=== PATIENT | male | born 1935 | race Caucasian/White ===

== ENCOUNTER 2016-03-30 13:06 | Inpatient (IN) | payer MEDICARE, BC ==
[2016-03-30] MEDS ORDERED: SODIUM CHLORIDE 0.9% 1,000 ML IV STA (13:30)
[2016-03-30 13:42] LABS: Basophils % (A) 0 %; CH 32.4; CHCM 32.4; Eosinophils # (A) 0.1 k/uL (0-0.7); Eosinophils % (A) 2 %; HCT 28.3 % (39.0-53.0); HDW 3.28; HGB 8.6 gm/dL (13.0-17.5); Hypochromasia Slight; Luc # (Auto) 0.12; Luc % (Auto) 2; Lymphocytes # (A) 0.5 k/uL (1.0-4.8); Lymphocytes % (A) 8 %; MCH 30.6 pg (25.0-35.0); MCHC 30.5 g/dL (31.0-37.0); MCV 100.6 fL (80.0-100.0); Macrocytosis Slight; Monocytes # (A) 0.5 k/uL (0-1.0); Monocytes % (A) 8 %; Neutrophils # (A) 4.8 k/uL (1.3-7.7); Neutrophils % (A) 80 %; RBC 2.82 m/uL (4.30-5.90); RDW 15.3 % (11.5-15.5); WBC (Perox) 6.34
[2016-03-30 13:53] LABS: Potassium 4.5 mmol/L (3.5-5.1); Total Bilirubin 0.3 mg/dL (0.2-1.3); Total Protein 6.3 g/dL (6.3-8.2)
--- NOTE | 2016-03-30 14:00 | XR ---
EXAMINATION TYPE: XR chest 2V DATE OF EXAM: 03/30/2016 1:57 PM COMPARISON: 11/16/2015 HISTORY: Pain FINDINGS: The lungs are clear and there is no pneumothorax, pleural effusion, or focal pneumonia. The heart is enlarged. Cardiac device noted. No overt failure. Correlate for previous coronary artery stenting. B iapical pleural thickening noted. IMPRESSION: 1. No acute process. 2. Cardiomegaly.
[2016-03-30] MEDS ORDERED: MORPHINE SULFATE 4 MG/ML SYRINGE IV PRN (15:05)
[2016-03-30] MEDS ORDERED: NALOXONE 0.4 MG/ML 1 ML VIAL IV PRN (15:05)
[2016-03-30] MEDS ORDERED: ONDANSETRON 4 MG/2 ML VIAL IVP PRN (15:05)
--- NOTE | 2016-03-30 15:05 | ED ---
GI Bleed HPI - General Chief complaint: GI Bleed Stated complaint: RECTAL BLEED Time Seen by Provider: 03/30/16 13:14 Source: patient, EMS Mode of arrival: EMS Limitations: no limitations - History of Present Illness Initial comments: Patient complains of bright red blood per rectum. He has had several episodes of this over the last 2 days. He also has some generalized myalgias, as well as lightheadedness and dizziness. He has had no syncope or presyncope episodes. He has no fever or chills, chest pain, shortness of breath. He has no belly or back pain. He has no nausea or vomiting. He has taken no medication for this. He denies injuries. He denies travel. He denies any exacerbating or relieving factors. - Related Data Home Medications Medication Instructions Recorded Confirmed Aspirin 81 mg PO DAILY 08/26/13 03/30/16 Atorvastatin [Lipitor] 80 mg PO HS 08/26/13 03/30/16 Digoxin [Lanoxin] 125 mg PO MOWEFR 08/26/13 03/30/16 Furosemide [Lasix] 40 mg PO BID 08/26/13 03/30/16 HYDROcodone/APAP 5-325MG [[place] 1 tab PO Q8HR PRN 08/26/13 03/30/16 5-325] Insulin Glargine [Lantus] 60 units SQ HS 08/26/13 03/30/16 Verapamil HCl [Verapamil ER] 360 mg PO PC-LUNCH 08/26/13 03/30/16 glipiZIDE [Glucotrol] 10 mg PO AC-BID 08/26/13 03/30/16 Ergocalciferol [Vitamin D2 50,000 unit PO Q14D 03/10/14 03/30/16 (DRISDOL)] Pramipexole [Mirapex] 0.125 mg PO HS 03/10/14 03/30/16 Allopurinol [Allopurinol] 100 mg PO DAILY 11/10/14 03/30/16 Enalapril Maleate [Enalapril 2.5 mg PO DAILY 11/10/14 03/30/16 Maleate] Hydrochlorothiazide 25 mg PO BID 11/10/14 03/30/16 [Hydrochlorothiazide] Omeprazole [Omeprazole] 40 mg PO DAILY 11/10/14 03/30/16 rOPINIRole HCL [Requip] 3 mg PO HS 11/10/14 03/30/16 Magnesium 400 mg PO DAILY 10/05/15 03/30/16 Calcitriol [Rocaltrol] 0.25 mcg PO WEST 03/30/16 03/30/16 Metoprolol Tartrate [Lopressor] 25 mg PO DAILY 03/30/16 03/30/16 hydrALAZINE HCL [Apresoline] 50 mg PO TID 03/30/16 03/30/16 Allergies Allergy/AdvReac Type Severity Reaction Status Date / Time No Known Allergies Allergy Verified 03/30/16 14:12 Review of Systems ROS Statement: Those systems with pertinent positive or pertinent negative responses have been documented in the HPI. ROS Other: All systems not noted in ROS Statement are negative. Past Medical History Past Medical History: Cancer, Diabetes Mellitus, GERD/Reflux, Hearing Disorder / Deafness, Hyperlipidemia, Hypertension, Pneumonia, Prostate Disorder, Renal Disease Additional Past Medical History / Comment(s): BLADDER/PROSTATE CANCER/ARTHRITIS , PAST HX OF AFIB, RLS. History of Any Multi-Drug Resistant Organisms: None Reported Past Surgical History: Bladder Surgery, Cholecystectomy, Heart Catheterization With Stent, Hernia Repair, Pacemaker, Prostate Surgery Additional Past Surgical History / Comment(s): UROSTOMY D/T BLADDER CA/BILAT CATARACT REMOVAL, X3 CARDIAC STENTS/PROSTATE REMOVED Past Anesthesia/Blood Transfusion Reactions: No Reported Reaction Date of Last Stent Placement:: 1996 Type of Cardiac Device: Permanent Pacemaker Device Placement Date:: 1996 Past Psychological History: No Psychological Hx Reported Smoking Status: Former smoker Past Alcohol Use History: None Reported Past Drug Use History: None Reported - Past Family History Father Additional Family Medical History / Comment(s): AT 34 Mother Family Medical History: Myocardial Infarction ([place]) Additional Family Medical History / Comment(s): OF [place] AGE 64 General Exam Limitations: no limitations General appearance: alert, in no apparent distress Head exam: Present: atraumatic, normocephalic, normal inspection Eye exam: Present: normal appearance, PERRL, EOMI. Absent: scleral icterus, conjunctival injection, periorbital swelling ENT exam: Present: normal exam, mucous membranes moist Neck exam: Present: normal inspection. Absent: tenderness, meningismus, lymphadenopathy Respiratory exam: Present: normal lung sounds bilaterally. Absent: respiratory distress, wheezes, rales, rhonchi, stridor Cardiovascular Exam: Present: regular rate, normal rhythm, normal heart sounds. Absent: systolic murmur, diastolic murmur, rubs, gallop, clicks GI/Abdominal exam: Present: soft, normal bowel sounds. Absent: distended, tenderness, guarding, rebound, rigid Extremities exam: Present: normal inspection, full ROM, normal capillary refill. Absent: tenderness, pedal edema, joint swelling, calf tenderness Back exam: Present: normal inspection Neurological exam: Present: alert, oriented X3, CN II-XII intact Psychiatric exam: Present: normal affect, normal mood Skin exam: Present: warm, dry, intact, normal color. Absent: rash Course Vital Signs 03/30/16 13:11 Temperature 98.0 F Pulse Rate 68 Respiratory 16 Rate Blood Pressure 157/69 O2 Sat by Pulse 97 Oximetry Medical Decision Making - Medical Decision Making Patient presents with report of GI bleed. Rectal exam reveals gross blood, guaiac positive. Hemoglobin is low. Creatinine is acutely elevated. BUN is extremely elevated. Patient will be admitted to the hospital. - Lab Data Result diagrams: 03/30/16 13:15 03/30/16 13:15 Lab Results 03/30/16 03/30/16 03/30/16 Range/Units 13:15 13:15 13:15 WBC 6.0 (3.8-10.6) k/uL RBC 2.82 L (4.30-5.90) m/uL Hgb 8.6 L (13.0-17.5) gm/dL Hct 28.3 L (39.0-53.0) % MCV 100.6 H (80.0-100.0) fL MCH 30.6 (25.0-35.0) pg MCHC 30.5 L (31.0-37.0) g/dL RDW 15.3 (11.5-15.5) % Plt Count 165 (150-450) k/uL Neutrophils % 80 % Lymphocytes % 8 % Monocytes % 8 % Eosinophils % 2 % Basophils % 0 % Neutrophils # 4.8 (1.3-7.7) k/uL Lymphocytes # 0.5 L (1.0-4.8) k/uL Monocytes # 0.5 (0-1.0) k/uL Eosinophils # 0.1 (0-0.7) k/uL Basophils # 0.0 (0-0.2) k/uL Hypochromasia Slight Macrocytosis Slight APTT 28.1 (22.0-30.0) sec Sodium 141 (137-145) mmol/L Potassium 4.5 (3.5-5.1) mmol/L Chloride 107 (98-107) mmol/L Carbon Dioxide 18 L (22-30) mmol/L Anion Gap 16 mmol/L BUN 85 H* (9-20) mg/dL Creatinine 2.84 H (0.66-1.25) mg/dL Est GFR (MDRD) Af Amer 26 (>60 ml/min/1.73 sqM) Est GFR (MDRD) Non-Af 22 (>60 ml/min/1.73 sqM) Glucose 187 H (74-99) mg/dL Calcium 9.0 (8.4-10.2) mg/dL Magnesium (1.6-2.3) mg/dL Total Bilirubin 0.3 (0.2-1.3) mg/dL AST 23 (17-59) U/L ALT 52 (21-72) U/L Alkaline Phosphatase 103 (38-126) U/L Troponin I (0.000-0.034) ng/mL Total Protein 6.3 (6.3-8.2) g/dL Albumin 3.7 (3.5-5.0) g/dL Lipase 428 H (23-300) U/L Stool Occult Blood (Negative) 03/30/16 03/30/16 03/30/16 Range/Units 13:15 13:15 13:38 WBC (3.8-10.6) k/uL RBC (4.30-5.90) m/uL Hgb (13.0-17.5) gm/dL Hct (39.0-53.0) % MCV (80.0-100.0) fL MCH (25.0-35.0) pg MCHC (31.0-37.0) g/dL RDW (11.5-15.5) % Plt Count (150-450) k/uL Neutrophils % % Lymphocytes % % Monocytes % % Eosinophils % % Basophils % % Neutrophils # (1.3-7.7) k/uL Lymphocytes # (1.0-4.8) k/uL Monocytes # (0-1.0) k/uL Eosinophils # (0-0.7) k/uL Basophils # (0-0.2) k/uL Hypochromasia Macrocytosis APTT (22.0-30.0) sec Sodium (137-145) mmol/L Potassium (3.5-5.1) mmol/L Chloride (98-107) mmol/L Carbon Dioxide (22-30) mmol/L Anion Gap mmol/L BUN (9-20) mg/dL Creatinine (0.66-1.25) mg/dL Est GFR (MDRD) Af Amer (>60 ml/min/1.73 sqM) Est GFR (MDRD) Non-Af (>60 ml/min/1.73 sqM) Glucose (74-99) mg/dL Calcium (8.4-10.2) mg/dL Magnesium 1.5 L (1.6-2.3) mg/dL Total Bilirubin (0.2-1.3) mg/dL AST (17-59) U/L ALT (21-72) U/L Alkaline Phosphatase (38-126) U/L Troponin I <0.012 (0.000-0.034) ng/mL Total Protein (6.3-8.2) g/dL Albumin (3.5-5.0) g/dL Lipase (23-300) U/L Stool Occult Blood Positive (Negative) 03/30/16 15:04 Twelve-lead EKG is obtained, interpreted by me as showing ventricular rate 60 bpm, no P waves are present, there are pacer spikes present, the QRS complex are wide, no ST elevation or depression, interpreted by me as ventricular paced rhythm. Disposition Clinical Impression: Gastrointestinal hemorrhage Disposition: ADMITTED IP TO THIS HOSP Condition: Fair Time of Disposition: 15:04
[2016-03-30 15:15] LABS: Glucose,Whole Blood 160 mg/dL (75-99)
[2016-03-30 16:50] LABS: Glucose,Whole Blood 173 mg/dL (75-99)
[2016-03-30] MEDS: FAMOTIDINE 20 MG TAB PO SCH (17:55)
[2016-03-30] MEDS: glipiZIDE 10 MG TAB PO SCH (17:55)
[2016-03-30] MEDS: hydrALAZINE HCL 50 MG TAB PO SCH ×2 (17:55→21:57)
[2016-03-30 18:15] LABS: CH 31.7; CHCM 31.8; HCT 26.3 % (39.0-53.0); HDW 3.29; HGB 8.4 gm/dL (13.0-17.5); Hypochromasia Slight; MCH 32.3 pg (25.0-35.0); MCHC 32.1 g/dL (31.0-37.0); MCV 100.6 fL (80.0-100.0); Macrocytosis Slight; Mean Platelet Volume 8.5; RBC 2.61 m/uL (4.30-5.90); RDW 15.1 % (11.5-15.5); WBC 5.5 k/uL (3.8-10.6)
[2016-03-30 20:43] LABS: Glucose,Whole Blood 134 mg/dL (75-99)
[2016-03-30] MEDS ORDERED: INSULIN GLARGINE 100 UNIT/ML 10 ML VIAL SQ SCH (21:00)
[2016-03-30] MEDS ORDERED: HYDROCHLOROTHIAZIDE 25 MG TAB PO SCH (21:00)
[2016-03-30] MEDS: SODIUM CHLORIDE 0.9% 1,000 ML IV SCH (21:56)
[2016-03-30] MEDS: ATORVASTATIN 80 MG TAB PO SCH (21:56)
[2016-03-30] MEDS: PRAMIPEXOLE 0.125 MG TAB PO SCH (21:57)
[2016-03-31 00:12] LABS: CH 32.4; CHCM 32.2; HCT 26.4 % (39.0-53.0); HDW 3.31; HGB 8.2 gm/dL (13.0-17.5); Hypochromasia Slight; MCH 31.4 pg (25.0-35.0); MCV 101.3 fL (80.0-100.0); Macrocytosis Slight; RBC 2.61 m/uL (4.30-5.90); RDW 15.3 % (11.5-15.5); WBC 5.6 k/uL (3.8-10.6)
[2016-03-31] MEDS: SODIUM CHLORIDE 0.9% 1,000 ML IV SCH ×2 (06:29→16:54)
[2016-03-31 06:31] LABS: CH 32.5; CHCM 32.2; HCT 25.4 % (39.0-53.0); HDW 3.27; Hypochromasia Slight; MCH 31.9 pg (25.0-35.0); MCHC 31.4 g/dL (31.0-37.0); MCV 101.5 fL (80.0-100.0); Macrocytosis Slight; Mean Platelet Volume 7.5; RBC 2.51 m/uL (4.30-5.90); RDW 15.3 % (11.5-15.5); WBC 5.4 k/uL (3.8-10.6)
[2016-03-31 06:40] LABS: Glucose,Whole Blood 64 mg/dL (75-99)
[2016-03-31 06:53] LABS: Glucose,Whole Blood 114 mg/dL (75-99)
[2016-03-31] MEDS: glipiZIDE 10 MG TAB PO SCH (07:09)
[2016-03-31] MEDS: FAMOTIDINE 20 MG TAB PO SCH (09:28)
[2016-03-31] MEDS: MAGNESIUM OXIDE 400 MG TAB PO SCH (09:29)
[2016-03-31] MEDS: DIGOXIN 125 MCG TAB PO SCH (09:29)
[2016-03-31] MEDS: hydrALAZINE HCL 50 MG TAB PO SCH ×3 (09:29→23:07)
[2016-03-31] MEDS: ALLOPURINOL 100 MG TAB PO SCH (09:29)
[2016-03-31] MEDS: METOPROLOL TARTRATE 25 MG TAB PO SCH (09:30)
--- NOTE | 2016-03-31 09:44 | HP ---
DATE OF ADMISSION: 03/30/2016 CHIEF COMPLAINT: Rectal bleeding. HISTORY OF PRESENT ILLNESS: Mr. Hidalgo is an 80-year-old male with known history of hypertension, hyperlipidemia, diabetes mellitus, coronary artery disease with stent placement and history of bladder cancer and prostate cancer, status post resection and atrial fibrillation, with history of pacemaker placement, came to the hospital with complaints of bright red blood per rectum. The patient had several episodes of this for the last 2 days. Patient also had generalized myalgias and lightheadedness and dizziness, which made him come to the hospital. Otherwise, the patient denied any fever or chills. No chest pain or short of breath. The patient denied any history of colonoscopy in the past. No history of hemorrhoids and otherwise denied nausea or vomiting. No recent travel or sick contacts. No recent illnesses. REVIEW OF SYSTEMS: CONSTITUTIONAL: No fever. No chills. RESPIRATORY: No cough or sputum production. The patient denied any NSAID use. ABDOMEN: No nausea or vomiting, abdominal pain. No constipation. No diarrhea. GENITOURINARY: Negative. ENDOCRINE: Negative. PSYCHIATRIC: Negative. SKIN: Negative. MUSCULOSKELETAL: Negative. All other fourteen-point review of systems negative except as above. Past medical history includes: Prostate cancer, bladder cancer, status post resection, diabetes mellitus, hypertension, hyperlipidemia, GERD, hearing disorder, coronary artery disease, stent placement, history of atrial fibrillation and history of pacemaker placement. PAST SURGICAL HISTORY: Bladder surgery, cholecystectomy, heart catheterization and stent placement, hernia repair, prostate surgery, urostomy due to bladder cancer, bilateral cataract removal. Three cardiac stents and prostate resection. SOCIAL HISTORY: The patient is a former smoker. Denied any alcohol use. Denied any drugs or IVDU. FAMILY HISTORY: Father age 54. Mother had MD age 64. PHYSICAL EXAMINATION: An 80-year-old male lying in the bed comfortably. Awake, alert, oriented, x3 appears to be in no apparent distress. VITALS: Blood pressure is 157/70, pulse 60, respiratory rate 16. Temperature is afebrile. Pulse ox 99% on room air. HEENT: Atraumatic, normocephalic. Neck is supple. No JVD. CVS: S1, S2 heard. No murmurs, no gallop. ABDOMEN: Soft, nontender. Bowel sounds are present. [employer]: Awake, alert, oriented, x3. No focal neurologic deficits. Cranial nerves grossly intact. EXTREMITIES: No edema. Pulses palpable bilaterally. No clubbing or cyanosis. PSYCHIATRIC: Cooperative, nonsuicidal. LABORATORY DATA: WBC 6.0, hemoglobin 8.6, platelets 165, MCV 100.6. Sodium 141, potassium 4.5, chloride 107, bicarb 18, BUN 85, creatinine 2.84. GFR is 22. Lipase 428. Magnesium 1.5, ( ) positive. EKG showed a paced rhythm. CHEST X-RAY: No acute process. Cardiomegaly. IMPRESSION: 1. Symptomatic anemia. 2. Acute blood loss anemia, secondary to lower gastrointestinal bleed, hemoglobin 8.6 was 10.3 in 2013. 3. Acute on chronic kidney disease stage IV with elevated BUN. 4. ( ) could be secondary to gastrointestinal bleed. 5. Hypomagnesemia. 6. History of bladder cancer, status post resection and ( ) and bag placement. 7. History of prostate cancer, status post resection. 8. [id number] diabetes mellitus, type II. 9. History of coronary artery disease, status post stent placement. 10. Macrocytosis. 11. Hypertension. 12. Hyperlipidemia. 13. Hearing disorder/deafness. DISCUSSION AND PLAN: An 80 -year-old male with multiple medical problems, comorbidities, admitted to the hospital with symptomatic anemia and acute blood loss anemia secondary to lower gastrointestinal bleed and rectal bleed. Will continue with hemoglobin and hematocrit every 6 hours and continue to monitor symptomatically. Will start patient on IV fluids and continue with the home medications. ( ) replace potassium and gastroenterology has been consulted for further elevation and possible colonoscopy. Prognosis guarded. Further recommendations based on the clinical course.
[2016-03-31 11:45] LABS: Glucose,Whole Blood 132 mg/dL (75-99)
[2016-03-31 12:18] LABS: CH 31.8; CHCM 31.8; HCT 25.1 % (39.0-53.0); HDW 3.22; HGB 8.1 gm/dL (13.0-17.5); Hypochromasia Slight; MCH 32.6 pg (25.0-35.0); MCHC 32.4 g/dL (31.0-37.0); MCV 100.7 fL (80.0-100.0); Macrocytosis Slight; Mean Platelet Volume 8.1; RDW 15.1 % (11.5-15.5); WBC 5.5 k/uL (3.8-10.6)
[2016-03-31] MEDS: LISINOPRIL 5 MG TAB PO SCH (12:38)
[2016-03-31 12:59] LABS: Glucose,Whole Blood 111 mg/dL (75-99)
--- NOTE | 2016-03-31 14:30 | CONS ---
DATE OF CONSULTATION: 03/31/2016 REASON FOR CONSULTATION: Acute lower GI bleed. HISTORY OF PRESENT ILLNESS: The patient is an 80-year-old pleasant, white male who came into the emergency room last night complaining of rectal bleeding. He had 2 episodes of bright red blood per rectum and the third episode he thought there was large amount of blood on the tissue paper. He became concerned and came to the emergency room and subsequently admitted to the hospital. He was on the selective floor and apparently he had 2 bowel movements back to back with ( ) amount of blood and hence he was transferred to the intensive care unit this afternoon. While I was examining the patient, he just had a bowel movement which was bright red blood mostly on the toilet tissue paper with some dripping noted. There was some brown stool also noted in the commode. The patient never had these symptoms in the past. He denies any abdominal pain. Reports no nausea or vomiting. His last colonoscopy was done in [address] Rowan and was noted to have diverticulosis as well as small internal hemorrhoids The patient reports not taking any NSAIDs recently and no history of anticoagulation. Past medical history is significant for prior history of prostate cancer, history of bladder cancer for which he underwent resection, diabetes mellitus, hypertension, GERD, hyperlipidemia, A. fib. PAST SURGICAL HISTORY: Pacemaker implantation, bladder surgery, cholecystectomy, cardiac cath, prostate surgery, hernia repair, bilateral cataract removal. Medications at home include Vitamin D2, Lanoxin, Rocaltrol, magnesium, hydrochlorothiazide, [place], Mirapex, Lopressor, Lasix, enalapril, Glucotrol, omeprazole, Apresoline, Requip, verapamil, Lantus, and allopurinol. ALLERGIES: None. SOCIAL HISTORY: No smoking. No alcohol use. FAMILY HISTORY: Unremarkable. REVIEW OF SYSTEMS: CARDIOPULMONARY: No chest pain or shortness of breath. GENITOURINARY: No dysuria or hematuria. MUSCULOSKELETAL: Unremarkable. SKIN: Unremarkable. ENDOCRINE: Unremarkable. PSYCHIATRIC: Unremarkable. NEUROLOGY: Unremarkable. ENT/VISION: Unremarkable. CONSTITUTIONAL: No recent weight loss. No fever, chills or night sweats. On physical examination, blood pressure 135/64, pulse rate 67, temperature 97.6. HEENT examination unremarkable. Conjunctivae pink. Sclerae anicteric. Oral cavity, no lesions. NECK: No JVD or lymph node enlargement. CHEST: Clear to auscultation. HEART: Regular rate and rhythm. ABDOMEN: Soft. It was nontender, nondistended. Liver and spleen are not palpable. Bowel sounds are positive. No organomegaly. EXTREMITIES: No pedal edema. SKIN: No rashes. NEURO: Alert and oriented x3. No focal deficits. Labs done at the time of admission to hospital: Hemoglobin was 8.4 and today it is 8.1. BUN is 85, creatinine 2.84. WBC 5.5 and platelets are normal at 149. PTT is within normal limits. IMPRESSION: Acute lower gastrointestinal bleed for the last 2 days' duration. The patient is having multiple episodes of bright red blood per rectum with small clots in it. Last colonoscopy in April [address] Rowan showed diverticulosis and small internal hemorrhoids. Most likely we are dealing with bleeding from internal hemorrhoids or a diverticular bleed at the present time. He is hemodynamically stable. He did drop hemoglobin from 8.4 to 8.1 g/dL. RECOMMENDATIONS: 1. Clear liquid diet. 2. CBC every 6 hours and transfuse as needed. 3. At this time, will hold off on any endoscopic intervention since he just had a colonoscopy a year and half ago. However, if he continues to have active ongoing bleeding, I will consider proceeding with a tagged RBC scan. But for now, will watch him in the ICU very closely. Thank you for this consultation. Will follow the patient closely ( ).
--- NOTE | 2016-03-31 14:47 | P.CNPUL ---
History of Present Illness Consult date: 03/31/16 Requesting physician: Tri Montanez Reason for consult: other (Acute rectal bleeding and lower GI blood loss) Chief complaint: Rectal bleeding History of present illness: This is an 80-year-old white male with history of multiple medical problems including hypertension, diabetes, coronary artery disease and previous stent placement, history of prostate and bladder cancer, history of chronic atrial fibrillation, history of pacemaker placement, patient came in with acute onset of bright red blood per rectum. Patient had several episodes over the last 2 days, and he was complaining of lightheadedness and dizziness and weakness. Patient was brought into the ER, and his initial hemoglobin was 8.4, his BUN was 84 creatinine was 2.84. His Hemoccult stool was positive, hence the patient was initially admitted to selective, and he was later transferred to the ICU because of ongoing lower GI blood losses. So far the patient has not received any blood transfusion, but he is scheduled to receive 2 units of packed RBCs at the time of my dictation. Upon my evaluation, the patient has no nausea no vomiting, no abdominal pain, no hematemesis, his only complaint was painless bright red blood per rectum over the last 2 days. Patient told me that he had a colonoscopy about 2 years ago, I was able to review the results of the colonoscopy which was done on 05/01/2014, and it showed diverticulosis, and he had a rectal polyp at the time as well as external hemorrhoids. His colonoscopy was done by Dr. Rowan Review of Systems 12 point review of systems were obtained, please refer to pertinent positives and negatives in HPI Past Medical History Past Medical History: Atrial Fibrillation, Cancer, Diabetes Mellitus, GERD/ Reflux, Hearing Disorder / Deafness, Hyperlipidemia, Hypertension, Osteoarthritis ([place]), Pneumonia, Prostate Disorder, Renal Disease Additional Past Medical History / Comment(s): BLADDER/PROSTATE CANCER with surgeries, IDDM type II, rectal polyp, diverticular dx, [place]IA[place] bilaterally, CKD stage IV, RLS, gout bilateral feet, neuropathy bilateral legs/feet and hands, R knee "gives out" at times. History of Any Multi-Drug Resistant Organisms: None Reported Past Surgical History: Bladder Surgery, Cholecystectomy, Heart Catheterization With Stent, Hernia Repair, Pacemaker, Prostate Surgery Additional Past Surgical History / Comment(s): UROSTOMY D/T BLADDER, prostatectomy due to prostate CA, BILAT CATARACT REMOVAL, X4 CARDIAC STENTS, colonoscopy with bx, bilateral inguinal hernia repairs with left side done twice then abdominal wound debridement and incisional hernia repair, Past Anesthesia/Blood Transfusion Reactions: No Reported Reaction Date of Last Stent Placement:: 1996 Type of Cardiac Device: Permanent Pacemaker Device Placement Date:: 1996 Past Psychological History: No Psychological Hx Reported Additional Psychological History / Comment(s): Pt resides with his spouse. He uses a cane or a scooter to get around. He drives some. His spouse can drive as well. Smoking Status: Former smoker Past Alcohol Use History: None Reported Additional Past Alcohol Use History / Comment(s): Pt started smoking in 1951 and quit in 2006 Past Drug Use History: None Reported - Past Family History Father Family Medical History: Renal Disease Additional Family Medical History / Comment(s): AT 34 of "uremic poisoning ". Mother History Unknown: Yes Family Medical History: Myocardial Infarction ([place]) Additional Family Medical History / Comment(s): OF [place] AGE 64 Medications and Allergies Home Medications Medication Instructions Recorded Confirmed Type Aspirin 81 mg PO DAILY 08/26/13 03/30/16 History Atorvastatin [Lipitor] 80 mg PO HS 08/26/13 03/30/16 History Digoxin [Lanoxin] 125 mg PO MOWEFR 08/26/13 03/30/16 History Furosemide [Lasix] 40 mg PO BID 08/26/13 03/30/16 History HYDROcodone/APAP 5-325MG [[place] 1 tab PO Q8HR PRN 08/26/13 03/30/16 History 5-325] Insulin Glargine [Lantus] 60 units SQ HS 08/26/13 03/30/16 History Verapamil HCl [Verapamil ER] 360 mg PO PC-LUNCH 08/26/13 03/30/16 History glipiZIDE [Glucotrol] 10 mg PO AC-BID 08/26/13 03/30/16 History Ergocalciferol [Vitamin D2 50,000 unit PO Q14D 03/10/14 03/30/16 History (DRISDOL)] Pramipexole [Mirapex] 0.125 mg PO HS 03/10/14 03/30/16 History Allopurinol [Allopurinol] 100 mg PO DAILY 11/10/14 03/30/16 History Enalapril Maleate [Enalapril 2.5 mg PO DAILY 11/10/14 03/30/16 History Maleate] Hydrochlorothiazide 25 mg PO BID 11/10/14 03/30/16 History [Hydrochlorothiazide] Omeprazole [Omeprazole] 40 mg PO DAILY 11/10/14 03/30/16 History rOPINIRole HCL [Requip] 3 mg PO HS 11/10/14 03/30/16 History Magnesium 400 mg PO DAILY 10/05/15 03/30/16 History Calcitriol [Rocaltrol] 0.25 mcg PO WEST 03/30/16 03/30/16 History Metoprolol Tartrate [Lopressor] 25 mg PO DAILY 03/30/16 03/30/16 History hydrALAZINE HCL [Apresoline] 50 mg PO TID 03/30/16 03/30/16 History Allergies Allergy/AdvReac Type Severity Reaction Status Date / Time No Known Allergies Allergy Verified 03/30/16 14:12 Physical Exam Vitals: Vital Signs Temp Pulse Pulse Resp BP BP Pulse Ox 03/31/16 14:10 98.3 F 60 18 150/51 97 03/31/16 14:03 98.3 F 60 18 150/51 97 03/31/16 12:00 97.7 F 60 20 138/58 97 03/31/16 09:20 97 F L 60 20 96 03/31/16 04:00 98.0 F 77 18 144/65 96 03/31/16 00:00 97.6 F 67 18 135/64 97 03/30/16 20:00 97.3 F L 60 18 156/69 97 03/30/16 18:50 60 16 159/70 98 03/30/16 16:30 97.6 F 60 16 157/70 99 03/30/16 16:11 98 F 60 18 155/69 98 03/30/16 15:14 98.3 F 60 18 153/70 98 Intake and Output 03/30/16 03/31/16 03/31/16 22:59 06:59 14:59 Intake Total 220 180 Output Total 300 550 375 Balance -80 -550 -195 Intake: Oral 220 180 Blood Product 0 Rc As-1 Unit 0 [id number] Output: Urine 300 550 375 Other: Voiding Method Toilet # Voids 1 # Bowel Movements 2 Weight 75 kg Physical Exam: Revealed an 80-year-old white male in no distress HEENT:[Neck is supple.] [No neck masses.] [No thyromegaly.] [No JVD.] Chest: [Clear throughout, no crackles, no rhonchi, no wheezes.] Cardiac Exam: [Normal S1 and S2, no S3 gallop, no murmur.] Abdomen: [Soft, nontender, no megaly, no rebound, no guarding, normal bowel sounds.] Extremities: [No clubbing, no edema, no cyanosis.] Neurological Exam: [No focal neurologic deficit.] Results - Laboratory Findings CBC and BMP: 03/31/16 11:58 03/30/16 13:15 Abnormal lab findings: Abnormal Labs 03/30/16 03/30/16 03/30/16 15:13 16:46 18:04 RBC 2.61 L Hgb 8.4 L Hct 26.3 L MCV 100.6 H Plt Count 149 L POC Glucose (mg/dL) 160 H 173 H 03/30/16 03/31/16 03/31/16 20:42 00:00 05:57 RBC 2.61 L 2.51 L Hgb 8.2 L 8.0 L Hct 26.4 L 25.4 L MCV 101.3 H 101.5 H Plt Count POC Glucose (mg/dL) 134 H 03/31/16 03/31/16 03/31/16 06:15 06:40 11:37 RBC Hgb Hct MCV Plt Count POC Glucose (mg/dL) 64 L 114 H 132 H 03/31/16 03/31/16 11:58 12:56 RBC 2.50 L Hgb 8.1 L Hct 25.1 L MCV 100.7 H Plt Count POC Glucose (mg/dL) 111 H - Diagnostic Findings Chest x-ray: image reviewed (No evidence of active disease) Assessment and Plan Plan: Impression: Acute GI bleeding, most likely secondary to diverticulosis and less proven otherwise. Again his last colonoscopy was done in the last 2 years, and there was evidence of diverticulosis, and hyperplastic polyp. Hence my recommendation will be to continue monitoring his GI bleeding, and transfuse as needed keeping hemoglobin above 7. Patient will need to be seen by gastroenterology or preferably surgery/Dr. Rowan since he was the one who performed his colonoscopy last. Multiple medical problems including history of diabetes type 2, hypertension, hyperlipidemia, prostate and bladder cancer, history of permanent pacemaker placement and history of chronic atrial fibrillation, however is not on anticoagulation therapy. We'll continue to follow while in the ICU. Time with Patient: Greater than 30
[2016-03-31] MEDS: traMADol 50 MG TAB PO PRN ×2 (14:56→21:35)
[2016-03-31] MEDS: VERAPAMIL SR 180 MG TABLET.ER PO SCH (14:58)
[2016-03-31] MEDS: PANTOPRAZOLE 40 MG/10 ML VIAL IVP SCH ×2 (14:58→21:35)
[2016-03-31 17:20] LABS: Glucose,Whole Blood 156 mg/dL (75-99)
[2016-03-31 18:52] LABS: CH 31.4; CHCM 31.4; HCT 31.3 % (39.0-53.0); HDW 3.38; HGB 9.9 gm/dL (13.0-17.5); Hypochromasia Moderate; MCHC 31.7 g/dL (31.0-37.0); MCV 100.9 fL (80.0-100.0); Macrocytosis Slight; Mean Platelet Volume 7.2; WBC 7.5 k/uL (3.8-10.6)
[2016-03-31 20:21] LABS: Calcium 8.4 mg/dL (8.4-10.2); Magnesium 1.5 mg/dL (1.6-2.3); Phosphorous 3.6 mg/dL (2.5-4.5); Potassium 4.5 mmol/L (3.5-5.1)
[2016-03-31 20:51] LABS: Glucose,Whole Blood 151 mg/dL (75-99)
[2016-03-31] MEDS ORDERED: Magnesium Replacement Protocol 1 EACH MISC MISCELLANE PRN (21:23)
[2016-03-31] MEDS ORDERED: MAGNESIUM SULFATE-D5W PMX 1 GM in DEXTROSE/WATER 1 100ML.BAG IVPB ONE (21:25)
[2016-03-31] MEDS: ATORVASTATIN 80 MG TAB PO SCH (21:35)
[2016-03-31] MEDS: INSULIN GLARGINE 100 UNIT/ML 10 ML VIAL SQ SCH (21:35)
[2016-03-31] MEDS: PRAMIPEXOLE 0.125 MG TAB PO SCH (21:36)
[2016-04-01] MEDS: SODIUM CHLORIDE 0.9% 1,000 ML IV SCH ×3 (01:51→20:14)
[2016-04-01 01:56] LABS: CH 31.6; CHCM 32.3; HCT 28.6 % (39.0-53.0); HDW 3.48; Hypochromasia Slight; MCH 31.1 pg (25.0-35.0); MCHC 31.5 g/dL (31.0-37.0); MCV 98.5 fL (80.0-100.0); Macrocytosis Slight; Mean Platelet Volume 7.4; Poikilocytosis Slight; WBC 5.8 k/uL (3.8-10.6)
[2016-04-01 06:09] LABS: CH 31.6; CHCM 32.1; HCT 28.3 % (39.0-53.0); HDW 3.49; Hypochromasia Slight; MCH 31.7 pg (25.0-35.0); MCV 99.2 fL (80.0-100.0); Macrocytosis Slight; Mean Platelet Volume 7.1; Poikilocytosis Slight; RBC 2.85 m/uL (4.30-5.90); RDW 15.9 % (11.5-15.5); WBC 5.9 k/uL (3.8-10.6)
[2016-04-01 06:25] LABS: Calcium 8.6 mg/dL (8.4-10.2); Phosphorous 4.1 mg/dL (2.5-4.5)
[2016-04-01 07:28] LABS: Glucose,Whole Blood 57 mg/dL (75-99)
[2016-04-01 07:49] LABS: Glucose,Whole Blood 85 mg/dL (75-99)
[2016-04-01] MEDS: PANTOPRAZOLE 40 MG/10 ML VIAL IVP SCH ×2 (10:22→20:17)
[2016-04-01] MEDS: MAGNESIUM OXIDE 400 MG TAB PO SCH (10:22)
[2016-04-01] MEDS: hydrALAZINE HCL 50 MG TAB PO SCH ×3 (10:22→20:18)
[2016-04-01] MEDS: ALLOPURINOL 100 MG TAB PO SCH (10:23)
[2016-04-01] MEDS: METOPROLOL TARTRATE 25 MG TAB PO SCH (10:23)
[2016-04-01] MEDS: LISINOPRIL 5 MG TAB PO SCH (12:08)
[2016-04-01] MEDS: VERAPAMIL SR 180 MG TABLET.ER PO SCH (12:10)
[2016-04-01 12:32] LABS: Anisocytosis Slight; CH 31.5; CHCM 31.8; HCT 29.2 % (39.0-53.0); HDW 3.48; HGB 9.4 gm/dL (13.0-17.5); Hypochromasia Slight; MCH 32.1 pg (25.0-35.0); MCHC 32.2 g/dL (31.0-37.0); MCV 99.8 fL (80.0-100.0); Macrocytosis Slight; Mean Platelet Volume 7.9; Poikilocytosis Slight; RBC 2.92 m/uL (4.30-5.90); WBC 6.4 k/uL (3.8-10.6)
[2016-04-01 12:47] LABS: Glucose,Whole Blood 82 mg/dL (75-99)
--- NOTE | 2016-04-01 12:58 | P.PN ---
Subjective Principal diagnosis: Acute GI bleeding This is an 80-year-old white male with history of multiple medical problems including hypertension, diabetes, coronary artery disease and previous stent placement, history of prostate and bladder cancer, history of chronic atrial fibrillation, history of pacemaker placement, patient came in with acute onset of bright red blood per rectum. Patient had several episodes over the last 2 days, and he was complaining of lightheadedness and dizziness and weakness. Patient was brought into the ER, and his initial hemoglobin was 8.4, his BUN was 84 creatinine was 2.84. His Hemoccult stool was positive, hence the patient was initially admitted to selective, and he was later transferred to the ICU because of ongoing lower GI blood losses. So far the patient has not received any blood transfusion, but he is scheduled to receive 2 units of packed RBCs at the time of my dictation. Upon my evaluation, the patient has no nausea no vomiting, no abdominal pain, no hematemesis, his only complaint was painless bright red blood per rectum over the last 2 days. Patient told me that he had a colonoscopy about 2 years ago, I was able to review the results of the colonoscopy which was done on 05/01/2014, and it showed diverticulosis, and he had a rectal polyp at the time as well as external hemorrhoids. His colonoscopy was done by Dr. Rowan Patient was reevaluated today on 04/01/2016, he is doing well except he continues to have intermittent episodes of bright red blood per rectum. Patient received 1 unit of packed RBCs since admission, and his hemoglobin now is 9.4. However considering the ongoing bleeding, patient will likely remain in the ICU for now. And he is to be seen by GI on consultation. Patient remains hemodynamically stable. Denies any shortness of breath no cough no wheezing no nausea no vomiting no abdominal pain. Objective - Vital Signs Vital signs: Vital Signs Temp 96.5 F L 04/01/16 08:00 Pulse 59 L 04/01/16 12:00 Resp 18 04/01/16 12:00 BP 131/56 04/01/16 12:00 Pulse Ox 96 04/01/16 12:00 Intake & Output 03/31/16 04/01/16 04/01/16 18:59 06:59 18:59 Intake Total 650 1490 920 Output Total 725 750 800 Balance -75 740 120 Weight 73.5 kg Intake: IV 160 240 520 Sodium Chloride 0.9% 1, 160 240 520 000 ml @ 100 mls/hr IV . Q10H [facility] Rx#:[id number] Intake, IV Titration 100 Amount Magnesium Sulfate-D5w Pmx 100 1 gm In Dextrose/Water 1 100ml.bag @ 100 mls/hr IVPB ONCE ONE Rx#: [id number] Oral 180 840 400 Blood Product 310 310 Rc As-1 Unit 0 310 [id number] Output: Urine 725 750 800 Other: Voiding Method Toilet Ileal Conduit (Right) Ileal Conduit (Right) # Voids 0 0 # Bowel Movements 2 0 1 - Exam Physical Exam: Revealed an 80-year-old white male in no distress HEENT:[Neck is supple.] [No neck masses.] [No thyromegaly.] [No JVD.] Chest: [Clear throughout, no crackles, no rhonchi, no wheezes.] Cardiac Exam: [Normal S1 and S2, no S3 gallop, no murmur.] Abdomen: [Soft, nontender, no megaly, no rebound, no guarding, normal bowel sounds.] Extremities: [No clubbing, no edema, no cyanosis.] Neurological Exam: [No focal neurologic deficit.] - Labs CBC & Chem 7: 04/01/16 12:11 04/01/16 05:21 Labs: Abnormal Lab Results - Last 24 Hours (Table) 03/31/16 03/31/16 03/31/16 Range/Units 12:56 17:18 18:32 RBC 3.10 L (4.30-5.90) m/uL Hgb 9.9 L D (13.0-17.5) gm/dL Hct 31.3 L (39.0-53.0) % MCV 100.9 H (80.0-100.0) fL RDW 16.0 H (11.5-15.5) % Plt Count (150-450) k/uL Chloride (98-107) mmol/L Carbon Dioxide (22-30) mmol/L BUN (9-20) mg/dL Creatinine (0.66-1.25) mg/dL Glucose (74-99) mg/dL POC Glucose (mg/dL) 111 H 156 H (75-99) mg/dL Magnesium (1.6-2.3) mg/dL 03/31/16 03/31/16 04/01/16 Range/Units 20:00 20:49 01:32 RBC 2.90 L (4.30-5.90) m/uL Hgb 9.0 L (13.0-17.5) gm/dL Hct 28.6 L (39.0-53.0) % MCV (80.0-100.0) fL RDW 16.0 H (11.5-15.5) % Plt Count (150-450) k/uL Chloride 111 H (98-107) mmol/L Carbon Dioxide 13 L (22-30) mmol/L BUN 65 H (9-20) mg/dL Creatinine 2.20 H (0.66-1.25) mg/dL Glucose 251 H (74-99) mg/dL POC Glucose (mg/dL) 151 H (75-99) mg/dL Magnesium 1.5 L (1.6-2.3) mg/dL 04/01/16 04/01/16 04/01/16 Range/Units 05:21 05:21 07:25 RBC 2.85 L (4.30-5.90) m/uL Hgb 9.0 L (13.0-17.5) gm/dL Hct 28.3 L (39.0-53.0) % MCV (80.0-100.0) fL RDW 15.9 H (11.5-15.5) % Plt Count 145 L (150-450) k/uL Chloride 115 H (98-107) mmol/L Carbon Dioxide 16 L (22-30) mmol/L BUN 62 H (9-20) mg/dL Creatinine 2.40 H (0.66-1.25) mg/dL Glucose 53 L (74-99) mg/dL POC Glucose (mg/dL) 57 L (75-99) mg/dL Magnesium (1.6-2.3) mg/dL 04/01/16 Range/Units 12:11 RBC 2.92 L (4.30-5.90) m/uL Hgb 9.4 L (13.0-17.5) gm/dL Hct 29.2 L (39.0-53.0) % MCV (80.0-100.0) fL RDW 16.0 H (11.5-15.5) % Plt Count 142 L (150-450) k/uL Chloride (98-107) mmol/L Carbon Dioxide (22-30) mmol/L BUN (9-20) mg/dL Creatinine (0.66-1.25) mg/dL Glucose (74-99) mg/dL POC Glucose (mg/dL) (75-99) mg/dL Magnesium (1.6-2.3) mg/dL Assessment and Plan Plan: Impression: Acute GI bleeding, most likely secondary to diverticulosis unless proven otherwise. Again his last colonoscopy was done in the last 2 years, and there was evidence of diverticulosis, and hyperplastic polyp. Hence my recommendation will be to continue monitoring his GI bleeding, and transfuse as needed keeping hemoglobin above 7. Patient will need to be seen by gastroenterology or preferably surgery/Dr. Rowan since he was the one who performed his colonoscopy last. Multiple medical problems including history of diabetes type 2, hypertension, hyperlipidemia, prostate and bladder cancer, history of permanent pacemaker placement and history of chronic atrial fibrillation, however is not on anticoagulation therapy. We'll continue to follow while in the ICU. Time with Patient: Less than 30
--- NOTE | 2016-04-01 13:57 | PN ---
DATE OF SERVICE: 03/31/2016 INTERVAL HISTORY: Mr. Ross is an 80-year-old male with known hypertension, hyperlipidemia, diabetes mellitus, and coronary artery disease with stent placement, history of bladder cancer, and prostate cancer, status post resection and atrial fibrillation with history of pacemaker placement, came to the hospital with complaints of bright red blood per rectum. Patient hemoglobin dropped to 8 today otherwise, patient is still having bright red blood per rectum this morning due to active bleeding, patient was transferred to intensive care unit and gastroenterology has been consulted and recommended tagged RBC scan and patient continues to bleed. Otherwise, the patient denied any complaints of chest pain or short of breath. Occasional dizziness. No fever. No chills. No acute overnight issues. REVIEW OF SYSTEMS: CONSTITUTIONAL: No fever. No chills. RESPIRATORY: No cough or sputum production. CARDIOVASCULAR: No shortness of breath. ABDOMEN: No nausea, vomiting, abdominal pain. GENITOURINARY: Negative. ENDOCRINE: Negative. Psychiatric: Negative. All other 14 point review of systems negative except as above. CURRENT MEDICATIONS: Reviewed. PHYSICAL EXAMINATION: An 80-year-old male lying in bed comfortably. Awake, alert, oriented x3, appears to be in no apparent distress. VITALS: Blood pressure is 119/54, pulse is 65, respiratory rate 17, temperature afebrile. Pulse ox 93% on 3 L nasal cannula. HEENT: Atraumatic. Neck is supple. No JVD. CVS: S1, S2 heard. No murmurs. No gallops. LUNGS: Bilateral air entry is present. No edema. No crackles. ABDOMEN: Soft, nontender, bowel sounds present. CENTRAL NERVOUS SYSTEM: Awake, alert, oriented, x3. No focal deficit. Cranial nerves grossly intact. EXTREMITIES: No edema. Pulses are palpable bilaterally. No clubbing or cyanosis. PSYCHIATRY: Cooperative. LABORATORY DATA: WBC 7.4, hemoglobin 11.9, platelets 161. Sodium 140, potassium 4.5, chloride 111, bicarb is 13. BUN 65, creatinine 2.2. Magnesium 1.5. IMPRESSION: 1. Symptomatic anemia. 2. Acute blood loss anemia, most likely secondary to lower gastrointestinal bleed. Hemoglobin is 8.0 today up from 8.6 on admission. The patient has been transfused 1 unit of PRBC. 3. Acute on chronic kidney disease stage ( ), acute on chronic disease stage III with elevated BUN level, which would be secondary to gastrointestinal bleed. 4. Hypomagnesemia. 5. History of bladder cancer, status post resection and history of prostate cancer status post resection. 6. Wjv-arxlxcx-dojsvurcl diabetes type 2. 7. History of coronary artery disease, status post stent placement. 8. Macrocytosis anemia. 9. Hypertension. 10. Hyperlipidemia. 11. Hearing disorder/deafness. 12. Deep venous thrombosis prophylaxis, SCDs. DISCUSSION AND PAMELA: 80 -year-old male admitted to the hospital with lower gastrointestinal bleed and hemoglobin dropped to 8.0 today. Patient will be transfused with 1 unit of PRBC and will be transferred to MICU for close monitoring. The patient will be continued on a clear liquid diet. Gastroenterology recommending tagged RBC scan ( ) continues to ( ), continue the IV fluids and continue current management. Prognosis is guarded. Further recommendations based on clinical course. We will continue to monitor hemoglobin and hematocrit.
--- NOTE | 2016-04-01 17:04 | PN ---
DATE OF SERVICE: 04/01/2016 REQUESTING PHYSICIAN: Dr. Lauri Gustafson. The patient is an 80-year-old pleasant, white male admitted to the hospital with acute lower GI bleed. He had multiple episodes of bright red blood per rectum and over the last 12 hours he had 2 episodes, each with about a cup full of blood with small clots. He denies any abdominal pain. Reports no nausea or vomiting. He just had a unit of PRBC transfusion yesterday and the last hemoglobin is 9 g/dL He presently remains on clear liquids, tolerating well. On physical examination, appears comfortable in no apparent distress. Vital signs stable. Blood pressure 121/50, pulse rate of 60, temperature 99. satting 96. HEENT EXAMINATION: Unremarkable. Conjunctivae pink. Sclerae anicteric. Oral cavity, no lesions. Neck no JVD or lymph node enlargement. Chest was clear to auscultation. HEART: Regular rate and rhythm. ABDOMEN: Soft. Bowel sounds are positive. No organomegaly. EXTREMITIES: No pedal edema. SKIN: No rashes. NEURO: He is alert and oriented x3. No focal deficits. Labs from today, hemoglobin 9, WBC 5.9, platelets are 145. IMPRESSION: Acute lower gastrointestinal bleed, possibly diverticular in nature or bleeding from internal hemorrhoids. Patient received 1 unit of PRBC transfusion so far and last hemoglobin is 9. he continues to still have some active bleeding. Last colonoscopy by Dr. Rowan in April of 2014 showed diverticulosis and internal hemorrhoids. RECOMMENDATIONS: 1. Continue with clear liquid diet. 2. Continue to monitor CBC every 12 hours. 3. At this time will still continue to hold off on any endoscopic intervention since he just had a colonoscopy a year and a half ago. 4. Discussed with the patient as well as the family regarding the plan and they are agreeable to it. Thank you for consultation.
[2016-04-01 17:22] LABS: Glucose,Whole Blood 120 mg/dL (75-99)
[2016-04-01 20:17] LABS: Glucose,Whole Blood 178 mg/dL (75-99)
[2016-04-01] MEDS: ATORVASTATIN 80 MG TAB PO SCH (20:17)
[2016-04-01] MEDS: PRAMIPEXOLE 0.125 MG TAB PO SCH (20:18)
[2016-04-01] MEDS: INSULIN GLARGINE 100 UNIT/ML 10 ML VIAL SQ SCH (20:21)
[2016-04-01 20:53] LABS: Basophils % (A) 0 %; CH 31.4; CHCM 31.5; Eosinophils # (A) 0.1 k/uL (0-0.7); Eosinophils % (A) 2 %; HCT 31.2 % (39.0-53.0); HDW 3.44; HGB 9.7 gm/dL (13.0-17.5); Hypochromasia Moderate; Luc # (Auto) 0.16; Luc % (Auto) 2; Lymphocytes # (A) 0.6 k/uL (1.0-4.8); Lymphocytes % (A) 8 %; MCH 31.3 pg (25.0-35.0); MCHC 31.2 g/dL (31.0-37.0); MCV 100.5 fL (80.0-100.0); Macrocytosis Slight; Mean Platelet Volume 8.2; Monocytes # (A) 0.4 k/uL (0-1.0); Monocytes % (A) 6 %; Neutrophils % (A) 82 %; Poikilocytosis Slight; WBC 7.3 k/uL (3.8-10.6); WBC (Perox) 7.86
[2016-04-02 03:50] LABS: Anisocytosis Slight; Basophils % (A) 0 %; CH 32.5; CHCM 31.9; Eosinophils # (A) 0.2 k/uL (0-0.7); Eosinophils % (A) 2 %; HCT 29.9 % (39.0-53.0); Hypochromasia Slight; Luc # (Auto) 0.13; Luc % (Auto) 2; Lymphocytes # (A) 0.6 k/uL (1.0-4.8); Lymphocytes % (A) 9 %; MCH 31.1 pg (25.0-35.0); MCHC 30.3 g/dL (31.0-37.0); MCV 102.9 fL (80.0-100.0); Macrocytosis Moderate; Mean Platelet Volume 7.6; Monocytes # (A) 0.5 k/uL (0-1.0); Monocytes % (A) 8 %; Neutrophils % (A) 79 %; Poikilocytosis Slight; RDW 16.2 % (11.5-15.5); WBC 6.3 k/uL (3.8-10.6); WBC (Perox) 6.77
[2016-04-02 04:04] LABS: Calcium 8.6 mg/dL (8.4-10.2); Magnesium 1.9 mg/dL (1.6-2.3); Phosphorous 3.9 mg/dL (2.5-4.5); Potassium 5.1 mmol/L (3.5-5.1)
[2016-04-02] MEDS ORDERED: Magnesium Replacement Protocol 1 EACH MISC MISCELLANE PRN (04:53)
[2016-04-02] MEDS: MAGNESIUM SULFATE-D5W PMX 1 GM in DEXTROSE/WATER 1 100ML.BAG IVPB SCH ×2 (05:29→06:54)
[2016-04-02] MEDS: SODIUM CHLORIDE 0.9% 1,000 ML IV SCH ×2 (05:36→11:15)
[2016-04-02 05:39] LABS: Glucose,Whole Blood 88 mg/dL (75-99)
[2016-04-02 07:40] LABS: Glucose,Whole Blood 88 mg/dL (75-99)
[2016-04-02] MEDS: hydrALAZINE HCL 50 MG TAB PO SCH ×3 (08:46→22:30)
[2016-04-02] MEDS: LISINOPRIL 5 MG TAB PO SCH (08:47)
[2016-04-02] MEDS: ALLOPURINOL 100 MG TAB PO SCH (08:47)
[2016-04-02] MEDS: PANTOPRAZOLE 40 MG/10 ML VIAL IVP SCH ×2 (08:47→22:34)
[2016-04-02] MEDS: METOPROLOL TARTRATE 25 MG TAB PO SCH (08:47)
[2016-04-02] MEDS: MAGNESIUM OXIDE 400 MG TAB PO SCH (08:47)
[2016-04-02 09:38] LABS: Basophils % (A) 0 %; CH 31.2; CHCM 30.7; Eosinophils # (A) 0.2 k/uL (0-0.7); Eosinophils % (A) 2 %; HCT 31.8 % (39.0-53.0); HDW 3.34; HGB 9.8 gm/dL (13.0-17.5); Hypochromasia Marked; Luc # (Auto) 0.18; Luc % (Auto) 2; Lymphocytes # (A) 1.1 k/uL (1.0-4.8); Lymphocytes % (A) 14 %; MCH 31.5 pg (25.0-35.0); MCHC 30.8 g/dL (31.0-37.0); MCV 102.3 fL (80.0-100.0); Macrocytosis Slight; Mean Platelet Volume 7.3; Monocytes # (A) 0.5 k/uL (0-1.0); Monocytes % (A) 6 %; Neutrophils # (A) 5.8 k/uL (1.3-7.7); Neutrophils % (A) 75 %; RBC 3.11 m/uL (4.30-5.90); WBC 7.7 k/uL (3.8-10.6); WBC (Perox) 8.42
--- NOTE | 2016-04-02 11:33 | P.PN ---
Subjective Principal diagnosis: Acute GI bleeding This is an 80-year-old white male with history of multiple medical problems including hypertension, diabetes, coronary artery disease and previous stent placement, history of prostate and bladder cancer, history of chronic atrial fibrillation, history of pacemaker placement, patient came in with acute onset of bright red blood per rectum. Patient had several episodes over the last 2 days, and he was complaining of lightheadedness and dizziness and weakness. Patient was brought into the ER, and his initial hemoglobin was 8.4, his BUN was 84 creatinine was 2.84. His Hemoccult stool was positive, hence the patient was initially admitted to selective, and he was later transferred to the ICU because of ongoing lower GI blood losses. So far the patient has not received any blood transfusion, but he is scheduled to receive 2 units of packed RBCs at the time of my dictation. Upon my evaluation, the patient has no nausea no vomiting, no abdominal pain, no hematemesis, his only complaint was painless bright red blood per rectum over the last 2 days. Patient told me that he had a colonoscopy about 2 years ago, I was able to review the results of the colonoscopy which was done on 05/01/2014, and it showed diverticulosis, and he had a rectal polyp at the time as well as external hemorrhoids. His colonoscopy was done by Dr. Rowan Patient was reevaluated today on 04/01/2016, he is doing well except he continues to have intermittent episodes of bright red blood per rectum. Patient received 1 unit of packed RBCs since admission, and his hemoglobin now is 9.4. However considering the ongoing bleeding, patient will likely remain in the ICU for now. And he is to be seen by GI on consultation. Patient remains hemodynamically stable. Denies any shortness of breath no cough no wheezing no nausea no vomiting no abdominal pain. Patient was reevaluated in the ICU today on 04/02/2016, continues to have intermittent episodes of minimal bright red blood per rectum. However his hemoglobin is stable, and he only received 1 unit of packed RBCs since admission. Hemoglobin today is 9.8. Patient is hemodynamically stable, and in no form of distress. I would likely arrange for him to be transferred to the ICU and continue close watch on his serial CBCs. Objective - Vital Signs Vital signs: Vital Signs Temp 98.2 F 04/02/16 08:00 Pulse 76 04/02/16 09:00 Resp 23 04/02/16 09:00 BP 167/67 04/02/16 09:00 Pulse Ox 95 04/02/16 09:00 Intake & Output 04/01/16 04/02/16 04/02/16 18:59 06:59 18:59 Intake Total 1720 1400 150 Output Total 1000 1100 Balance 720 300 150 Weight 74.7 kg Intake: IV 1320 1300 150 Sodium Chloride 0.9% 1, 1320 1300 150 000 ml @ 100 mls/hr IV . Q10H [facility] Rx#:[id number] Oral 400 100 Output: Urine 1000 1100 Other: Voiding Method Ileal Conduit (Right) Ileal Conduit (Right) Ileal Conduit ( Right) # Voids 0 # Bowel Movements 1 1 - Exam Physical Exam: Revealed an 80-year-old white male in no distress HEENT:[Neck is supple.] [No neck masses.] [No thyromegaly.] [No JVD.] Chest: [Clear throughout, no crackles, no rhonchi, no wheezes.] Cardiac Exam: [Normal S1 and S2, no S3 gallop, no murmur.] Abdomen: [Soft, nontender, no megaly, no rebound, no guarding, normal bowel sounds.] Extremities: [No clubbing, no edema, no cyanosis.] Neurological Exam: [No focal neurologic deficit.] - Labs CBC & Chem 7: 04/02/16 09:11 04/02/16 03:27 Labs: Abnormal Lab Results - Last 24 Hours (Table) 04/01/16 04/01/16 04/01/16 Range/Units 12:11 17:16 20:15 RBC 2.92 L (4.30-5.90) m/uL Hgb 9.4 L (13.0-17.5) gm/dL Hct 29.2 L (39.0-53.0) % MCV (80.0-100.0) fL MCHC (31.0-37.0) g/dL RDW 16.0 H (11.5-15.5) % Plt Count 142 L (150-450) k/uL Lymphocytes # (1.0-4.8) k/uL Chloride (98-107) mmol/L Carbon Dioxide (22-30) mmol/L BUN (9-20) mg/dL Creatinine (0.66-1.25) mg/dL Glucose (74-99) mg/dL POC Glucose (mg/dL) 120 H 178 H (75-99) mg/dL 04/01/16 04/02/16 04/02/16 Range/Units 20:39 03:27 03:27 RBC 3.10 L 2.90 L (4.30-5.90) m/uL Hgb 9.7 L 9.0 L (13.0-17.5) gm/dL Hct 31.2 L 29.9 L (39.0-53.0) % MCV 100.5 H 102.9 H (80.0-100.0) fL MCHC 30.3 L (31.0-37.0) g/dL RDW 16.0 H 16.2 H (11.5-15.5) % Plt Count (150-450) k/uL Lymphocytes # 0.6 L 0.6 L (1.0-4.8) k/uL Chloride 115 H (98-107) mmol/L Carbon Dioxide 15 L (22-30) mmol/L BUN 54 H (9-20) mg/dL Creatinine 2.30 H (0.66-1.25) mg/dL Glucose 72 L (74-99) mg/dL POC Glucose (mg/dL) (75-99) mg/dL 04/02/16 Range/Units 09:11 RBC 3.11 L (4.30-5.90) m/uL Hgb 9.8 L (13.0-17.5) gm/dL Hct 31.8 L (39.0-53.0) % MCV 102.3 H (80.0-100.0) fL MCHC 30.8 L (31.0-37.0) g/dL RDW 16.0 H (11.5-15.5) % Plt Count (150-450) k/uL Lymphocytes # (1.0-4.8) k/uL Chloride (98-107) mmol/L Carbon Dioxide (22-30) mmol/L BUN (9-20) mg/dL Creatinine (0.66-1.25) mg/dL Glucose (74-99) mg/dL POC Glucose (mg/dL) (75-99) mg/dL Assessment and Plan Plan: Impression: Acute GI bleeding, most likely secondary to diverticulosis unless proven otherwise. Again his last colonoscopy was done in the last 2 years, and there was evidence of diverticulosis, and hyperplastic polyp. Considering the patient's stability over the last 2 days, I believe he could be transferred out of the ICU, continue to monitor closely, and decision regarding any scopes will be made by gastroenterology on the case. However more often diverticular bleed ends up stopping On their own Multiple medical problems including history of diabetes type 2, hypertension, hyperlipidemia, prostate and bladder cancer, history of permanent pacemaker placement and history of chronic atrial fibrillation, however is not on anticoagulation therapy. We'll continue to follow while in the ICU. Time with Patient: Less than 30
[2016-04-02 11:37] VITALS: RESP 18
[2016-04-02 11:52] LABS: Glucose,Whole Blood 80 mg/dL (75-99)
[2016-04-02] MEDS: VERAPAMIL SR 180 MG TABLET.ER PO SCH (12:17)
[2016-04-02] MEDS ORDERED: FUROSEMIDE 10 MG/ML 4 ML VIAL IV STA (13:02)
[2016-04-02] MEDS ORDERED: TEMAZEPAM 15 MG CAP PO PRN (13:03)
[2016-04-02 15:11] LABS: Anisocytosis Slight; Basophils % (A) 0 %; CH 32.3; Eosinophils # (A) 0.1 k/uL (0-0.7); Eosinophils % (A) 2 %; HCT 31.4 % (39.0-53.0); HDW 3.37; HGB 9.5 gm/dL (13.0-17.5); Hypochromasia Slight; Luc # (Auto) 0.11; Luc % (Auto) 2; Lymphocytes # (A) 0.5 k/uL (1.0-4.8); Lymphocytes % (A) 7 %; MCH 30.8 pg (25.0-35.0); MCHC 30.1 g/dL (31.0-37.0); MCV 102.1 fL (80.0-100.0); Macrocytosis Slight; Mean Platelet Volume 7.7; Monocytes # (A) 0.5 k/uL (0-1.0); Monocytes % (A) 6 %; Neutrophils # (A) 6.2 k/uL (1.3-7.7); Neutrophils % (A) 84 %; RBC 3.07 m/uL (4.30-5.90); RDW 16.1 % (11.5-15.5); WBC 7.4 k/uL (3.8-10.6); WBC (Perox) 8.13
--- NOTE | 2016-04-02 16:08 | PN ---
The patient is an 80-year-old pleasant white male admitted to the hospital with acute lower GI bleed. He has been having bright red blood per rectum for the last two days duration. In the last 24 hours he had two bowel movements with moderate amount of blood and small clots. Overall, he is feeling better. He denies any abdominal pain. Reports no nausea or vomiting. On physical examination, blood pressure 150/74, pulse rate 60, temperature 98.4. HEENT examination unremarkable. Conjunctivae pink. Sclerae anicteric. Oral cavity, no lesions. NECK: No JVD or lymph node enlargement. CHEST: Clear to auscultation. HEART: Regular rate and rhythm. ABDOMEN: Soft. Bowel sounds are positive. No organomegaly. EXTREMITIES: No pedal edema. SKIN: No rashes. NEURO: He is alert and oriented x3. No focal deficits. LABS: Hemoglobin is 9.8, WBC 7.7, platelets are 167. IMPRESSION: Acute lower gastrointestinal bleed, possibly diverticular in nature. Of course, possibility of bleeding from internal hemorrhoids cannot be excluded. Last colonoscopy April of [address] Rowan showed diverticulosis. He is hemodynamically stable but continues to still have mild ongoing bleeding. RECOMMENDATIONS: 1. Transfer to the floor. 2. Continue with clear liquid diet. 3. CBC in the morning. 4. We will follow him closely.
[2016-04-02 16:55] LABS: Glucose,Whole Blood 119 mg/dL (75-99)
[2016-04-02] MEDS: FUROSEMIDE 40 MG TAB PO SCH (18:26)
[2016-04-02] MEDS: traMADol 50 MG TAB PO PRN ×2 (18:36→23:41)
[2016-04-02 21:02] LABS: Basophils % (A) 0 %; CH 31.5; CHCM 31.5; Eosinophils # (A) 0.2 k/uL (0-0.7); Eosinophils % (A) 2 %; HCT 29.9 % (39.0-53.0); HDW 3.35; HGB 9.6 gm/dL (13.0-17.5); Hypochromasia Moderate; Luc # (Auto) 0.15; Luc % (Auto) 2; Lymphocytes # (A) 0.6 k/uL (1.0-4.8); Lymphocytes % (A) 9 %; MCH 32.4 pg (25.0-35.0); MCHC 32.2 g/dL (31.0-37.0); MCV 100.8 fL (80.0-100.0); Macrocytosis Slight; Mean Platelet Volume 7.2; Monocytes # (A) 0.4 k/uL (0-1.0); Monocytes % (A) 6 %; Neutrophils # (A) 5.4 k/uL (1.3-7.7); Neutrophils % (A) 80 %; RBC 2.97 m/uL (4.30-5.90); WBC 6.8 k/uL (3.8-10.6); WBC (Perox) 7.31
[2016-04-02 21:09] LABS: Glucose,Whole Blood 181 mg/dL (75-99)
[2016-04-02] MEDS: ATORVASTATIN 80 MG TAB PO SCH (22:30)
[2016-04-02] MEDS: PRAMIPEXOLE 0.125 MG TAB PO SCH (22:30)
[2016-04-02] MEDS: INSULIN GLARGINE 100 UNIT/ML 10 ML VIAL SQ SCH (22:35)
[2016-04-03 02:53] LABS: Anisocytosis Slight; Basophils % (A) 0 %; CH 32.4; CHCM 31.8; Eosinophils # (A) 0.1 k/uL (0-0.7); Eosinophils % (A) 2 %; HCT 29.5 % (39.0-53.0); HDW 3.32; HGB 9.1 gm/dL (13.0-17.5); Hypochromasia Slight; Luc # (Auto) 0.13; Luc % (Auto) 2; Lymphocytes # (A) 0.5 k/uL (1.0-4.8); Lymphocytes % (A) 8 %; MCH 31.6 pg (25.0-35.0); MCHC 30.7 g/dL (31.0-37.0); MCV 102.9 fL (80.0-100.0); Macrocytosis Moderate; Mean Platelet Volume 8.4; Monocytes # (A) 0.5 k/uL (0-1.0); Monocytes % (A) 8 %; Neutrophils # (A) 5.1 k/uL (1.3-7.7); Neutrophils % (A) 80 %; RBC 2.87 m/uL (4.30-5.90); RDW 16.1 % (11.5-15.5); WBC 6.4 k/uL (3.8-10.6); WBC (Perox) 6.95
[2016-04-03 06:14] LABS: Glucose,Whole Blood 110 mg/dL (75-99)
[2016-04-03 08:17] LABS: Basophils % (A) 0 %; CH 31.5; CHCM 31.7; Eosinophils # (A) 0.1 k/uL (0-0.7); Eosinophils % (A) 2 %; HCT 28.5 % (39.0-53.0); HDW 3.32; HGB 8.9 gm/dL (13.0-17.5); Hypochromasia Slight; Luc # (Auto) 0.12; Luc % (Auto) 2; Lymphocytes # (A) 0.5 k/uL (1.0-4.8); Lymphocytes % (A) 9 %; MCH 31.4 pg (25.0-35.0); MCHC 31.4 g/dL (31.0-37.0); Macrocytosis Slight; Monocytes # (A) 0.4 k/uL (0-1.0); Monocytes % (A) 6 %; Neutrophils % (A) 81 %; RBC 2.85 m/uL (4.30-5.90); RDW 15.8 % (11.5-15.5); WBC 6.1 k/uL (3.8-10.6)
[2016-04-03 08:40] LABS: Calcium 8.9 mg/dL (8.4-10.2); Magnesium 1.9 mg/dL (1.6-2.3); Phosphorous 3.7 mg/dL (2.5-4.5); Potassium 5.1 mmol/L (3.5-5.1)
[2016-04-03] MEDS: METOPROLOL TARTRATE 25 MG TAB PO SCH (08:55)
[2016-04-03] MEDS: PANTOPRAZOLE 40 MG/10 ML VIAL IVP SCH ×2 (08:55→21:35)
[2016-04-03] MEDS: ALLOPURINOL 100 MG TAB PO SCH (08:55)
[2016-04-03] MEDS: FUROSEMIDE 40 MG TAB PO SCH ×2 (08:55→16:50)
[2016-04-03] MEDS: hydrALAZINE HCL 50 MG TAB PO SCH ×3 (08:55→21:35)
[2016-04-03] MEDS: MAGNESIUM OXIDE 400 MG TAB PO SCH (08:55)
[2016-04-03] MEDS: LISINOPRIL 5 MG TAB PO SCH (08:55)
[2016-04-03] MEDS: DIGOXIN 125 MCG TAB PO SCH (08:55)
[2016-04-03] MEDS ORDERED: INFLUENZA VACCINE (3YR+) 60 MCG/0.5 ML SYRINGE IM ONE (09:00)
[2016-04-03 11:37] LABS: Glucose,Whole Blood 109 mg/dL (75-99)
--- NOTE | 2016-04-03 13:15 | P.PN ---
Subjective Principal diagnosis: Acute GI bleeding This is an 80-year-old white male with history of multiple medical problems including hypertension, diabetes, coronary artery disease and previous stent placement, history of prostate and bladder cancer, history of chronic atrial fibrillation, history of pacemaker placement, patient came in with acute onset of bright red blood per rectum. Patient had several episodes over the last 2 days, and he was complaining of lightheadedness and dizziness and weakness. Patient was brought into the ER, and his initial hemoglobin was 8.4, his BUN was 84 creatinine was 2.84. His Hemoccult stool was positive, hence the patient was initially admitted to selective, and he was later transferred to the ICU because of ongoing lower GI blood losses. So far the patient has not received any blood transfusion, but he is scheduled to receive 2 units of packed RBCs at the time of my dictation. Upon my evaluation, the patient has no nausea no vomiting, no abdominal pain, no hematemesis, his only complaint was painless bright red blood per rectum over the last 2 days. Patient told me that he had a colonoscopy about 2 years ago, I was able to review the results of the colonoscopy which was done on 05/01/2014, and it showed diverticulosis, and he had a rectal polyp at the time as well as external hemorrhoids. His colonoscopy was done by Dr. Rowan Patient was reevaluated today on 04/01/2016, he is doing well except he continues to have intermittent episodes of bright red blood per rectum. Patient received 1 unit of packed RBCs since admission, and his hemoglobin now is 9.4. However considering the ongoing bleeding, patient will likely remain in the ICU for now. And he is to be seen by GI on consultation. Patient remains hemodynamically stable. Denies any shortness of breath no cough no wheezing no nausea no vomiting no abdominal pain. Patient was reevaluated in the ICU today on 04/02/2016, continues to have intermittent episodes of minimal bright red blood per rectum. However his hemoglobin is stable, and he only received 1 unit of packed RBCs since admission. Hemoglobin today is 9.8. Patient is hemodynamically stable, and in no form of distress. I would likely arrange for him to be transferred to the ICU and continue close watch on his serial CBCs. Patient was reevaluated today on 04/03/2016, no further episodes of GI bleeding. Patient is doing well, and his hemoglobin is stable. Hemoglobin today is 8.9, and it was 9.1 yesterday. Patient received only one unit of packed RBCs since admission. Again I believe the bleeding is most likely diverticular in nature, and patient is being considered for possible discharge tomorrow. Objective - Vital Signs Vital signs: Vital Signs Temp 97.3 F L 04/03/16 08:00 Pulse 71 04/03/16 08:00 Resp 18 04/03/16 08:00 BP 154/72 04/03/16 08:00 Pulse Ox 96 04/03/16 08:00 Intake & Output 04/02/16 04/03/16 04/03/16 18:59 06:59 18:59 Intake Total 840 540 Output Total 700 900 325 Balance 140 -360 -325 Weight 77.7 kg Intake: IV 240 240 Sodium Chloride 0.9% 1, 240 240 000 ml @ 100 mls/hr IV . Q10H [facility] Rx#:[id number] Intake, IV Titration 40 Amount Sodium Chloride 0.9% 1, 40 000 ml @ 20 mls/hr IV . Q24H [facility] Rx#:[id number] Oral 560 300 Output: Urine 700 900 325 Other: Voiding Method Ileal Conduit (Right) Ileal Conduit (Right) Ileal Conduit ( Right) # Bowel Movements 1 - Exam Physical Exam: Revealed an 80-year-old white male in no distress HEENT:[Neck is supple.] [No neck masses.] [No thyromegaly.] [No JVD.] Chest: [Clear throughout, no crackles, no rhonchi, no wheezes.] Cardiac Exam: [Normal S1 and S2, no S3 gallop, no murmur.] Abdomen: [Soft, nontender, no megaly, no rebound, no guarding, normal bowel sounds.] Extremities: [No clubbing, no edema, no cyanosis.] Neurological Exam: [No focal neurologic deficit.] - Labs CBC & Chem 7: 04/03/16 08:04 04/03/16 08:04 Labs: Abnormal Lab Results - Last 24 Hours (Table) 04/02/16 04/02/16 04/02/16 Range/Units 14:59 16:46 20:50 RBC 3.07 L 2.97 L (4.30-5.90) m/uL Hgb 9.5 L 9.6 L (13.0-17.5) gm/dL Hct 31.4 L 29.9 L (39.0-53.0) % MCV 102.1 H 100.8 H (80.0-100.0) fL MCHC 30.1 L (31.0-37.0) g/dL RDW 16.1 H 16.0 H (11.5-15.5) % Lymphocytes # 0.5 L 0.6 L (1.0-4.8) k/uL Chloride (98-107) mmol/L Carbon Dioxide (22-30) mmol/L BUN (9-20) mg/dL Creatinine (0.66-1.25) mg/dL Glucose (74-99) mg/dL POC Glucose (mg/dL) 119 H (75-99) mg/dL 04/02/16 04/03/16 04/03/16 Range/Units 21:08 02:32 06:10 RBC 2.87 L (4.30-5.90) m/uL Hgb 9.1 L (13.0-17.5) gm/dL Hct 29.5 L (39.0-53.0) % MCV 102.9 H (80.0-100.0) fL MCHC 30.7 L (31.0-37.0) g/dL RDW 16.1 H (11.5-15.5) % Lymphocytes # 0.5 L (1.0-4.8) k/uL Chloride (98-107) mmol/L Carbon Dioxide (22-30) mmol/L BUN (9-20) mg/dL Creatinine (0.66-1.25) mg/dL Glucose (74-99) mg/dL POC Glucose (mg/dL) 181 H 110 H (75-99) mg/dL 04/03/16 04/03/16 04/03/16 Range/Units 08:04 08:04 11:35 RBC 2.85 L (4.30-5.90) m/uL Hgb 8.9 L (13.0-17.5) gm/dL Hct 28.5 L (39.0-53.0) % MCV (80.0-100.0) fL MCHC (31.0-37.0) g/dL RDW 15.8 H (11.5-15.5) % Lymphocytes # 0.5 L (1.0-4.8) k/uL Chloride 112 H (98-107) mmol/L Carbon Dioxide 16 L (22-30) mmol/L BUN 48 H (9-20) mg/dL Creatinine 2.28 H (0.66-1.25) mg/dL Glucose 160 H (74-99) mg/dL POC Glucose (mg/dL) 109 H (75-99) mg/dL Assessment and Plan Plan: Impression: Acute GI bleeding, most likely secondary to diverticulosis unless proven otherwise. Again his last colonoscopy was done in the last 2 years, and there was evidence of diverticulosis, and hyperplastic polyp. Considering the patient's stability , patient could be considered for discharge planning in a.m. Final decision for discharge will be made by gastroenterology on the case. Multiple medical problems including history of diabetes type 2, hypertension, hyperlipidemia, prostate and bladder cancer, history of permanent pacemaker placement and history of chronic atrial fibrillation, however is not on anticoagulation therapy. We'll continue to follow while in the ICU. Time with Patient: Less than 30
--- NOTE | 2016-04-03 14:09 | PN ---
DATE OF SERVICE: 04/01/2016 INTERVAL HISTORY: Mr. Hidalgo is an 80-year-old male with a known history of hypertension, hyperlipidemia, diabetes mellitus, and coronary artery stent placement, and history of bladder cancer, prostate cancer, status post resection and atrial fibrillation with history of pacemaker placement, was admitted to the hospital with bright red blood per rectum. The patient's hemoglobin dropped below 8 yesterday and was given 1 unit of PRBC. Currently remains at 9. Did have multiple episodes of blood per rectum, which has improved in quantity. Otherwise GI is following the patient. No plan for colonoscopy at this time. Otherwise the patient denied any complaints of chest pain or shortness of breath. No headache or dizziness or lightheadedness. No acute overnight issues. REVIEW OF SYSTEMS: CONSTITUTIONAL: No fever. No chills. RESPIRATORY: No cough or sputum production. CARDIOVASCULAR: No chest pain or short of breath. ABDOMEN: No nausea, vomiting, or abdominal pain. GENITOURINARY: Negative. ENDOCRINE: Negative. PSYCHIATRY: Negative. SKIN: Negative. All other fourteen point review of systems negative except as above. CURRENT MEDICATIONS: Reviewed. PHYSICAL EXAMINATION: An 80-year-old male lying in the bed comfortably. Awake, alert, oriented x3 appears to be in no apparent distress. VITALS: Blood pressure 151/53, pulse is 60, respirations 22, temperature afebrile, pulse ox 97% on 2 liters nasal cannula. HEENT: Atraumatic, normocephalic. Neck is supple. No JVD. CVS: S1, S2 heard. No murmurs. No gallop. LUNGS: Bilateral air entry is present. Minimal crackles at the base. Nonlabored breathing. ABDOMEN: Soft, nontender. Bowel sounds are present. COMMISSARY SUPERINTENDENT: Awake, alert, oriented x3. No focal deficit. Cranial nerves grossly intact. EXTREMITIES: No edema. Pulses palpable bilaterally. No clubbing. No cyanosis. PSYCHIATRIC: Cooperative. LABORATORY DATA: WBC 7.3, hemoglobin 9.7, platelets 163. IMPRESSION: 1. Acute blood loss anemia most likely secondary to lower gastrointestinal bleed, diverticular versus internal hemorrhoids. Hemoglobin improved to 9.1 post 1 unit of PRBC. We will continue to monitor hemoglobin and hematocrit. GI not planning for colonoscopy at this time. 2. Symptomatic anemia on admission. 3. Acute on chronic kidney disease stage III. 4. Hypomagnesemia, improved. 5. History of bladder cancer, status post resection and history of prostate cancer, status post resection. 6. Noninsulin dependent diabetes mellitus type 2. 7. History of coronary artery disease, status post stent placement. 8. Macrocytic anemia. 9. Hypertension. 10. Hyperlipidemia. 11. Hearing disorder/deafness. 12. DVT prophylaxis ( ). 13. FULL CODE. DISCUSSION AND PLAN: An 80-year-old male admitted to the hospital with lower gastrointestinal bleed. We will continue to monitor hemoglobin and hematocrit and hemoglobin fairly stable around 9. GI is not planning for colonoscopy. Last colonoscopy was one and half years back. We will continue with Protonix and IV fluids. Follow closely. Further recommendations based on the clinical course.
--- NOTE | 2016-04-03 14:34 | PN ---
DATE OF SERVICE: 04/02/2016 INTERVAL HISTORY: Mr. Hidalgo is an 80 -year-old male admitted to the hospital with bright red blood per rectum, currently on status post 1 unit of PRBC. Hemoglobin improved to 9.8 today. Otherwise, the patient is complaining of difficulty breathing and worsening leg swelling and Lasix has been restarted which was stopped due to hypertension on admission. Otherwise, patient denied any complaints of fever or chills. No headache or dizziness, lightheadedness and no abdominal pain. No nausea or vomiting. Patient tolerating p.o. diet. No acute overnight, issues. We will continue to monitor hemoglobin and hematocrit another 24 hours. Gastroenterology is following this patient. REVIEW OF SYSTEMS: CONSTITUTIONAL: No fever. No chills. RESPIRATORY: No cough or sputum production. CARDIOVASCULAR: No chest pain. The patient has short of breath and increased leg swelling. ABDOMEN: No nausea, vomiting, or abdominal pain. GENITOURINARY: Negative. ENDOCRINE: Negative. Psychiatry negative. Skin negative. All other 14 point review of systems negative except as above. Current medications include: 1. Zyloprim. 2. Ativan. 3. Digoxin. 4. Lasix. 5. Hydralazine. 6. Lisinopril. 7. Magnesium oxide. 8. Lopressor. 9. Narcan. 10. Protonix. 11. Mirapex. 12. Requip. 13. Restoril. 14. Ultram. 15. Verapamil. PHYSICAL EXAMINATION: An 80-year-old male lying in bed comfortably. Awake, alert, oriented, x3 appears to be in no apparent distress. VITALS: Blood pressure is 138/67, pulse is 60, respirations 18, temperature afebrile. Pulse ox is 96% on 2 L nasal cannula. HEENT: Atraumatic, normocephalic. Neck is supple. No JVD. CVS: S1, S2 heard. No murmurs, no gallop. LUNGS: Bilateral air entry is present. No wheezing. Minimal crackles positive. Nonlabored breathing. ABDOMEN: Soft, nontender, bowel sounds present. SOFTWARE DEVELOPER MID LEVEL: Awake, alert, oriented, x3. No focal deficit present. Cranial nerves grossly intact. EXTREMITIES: Bilateral trace edema. Pulses palpable bilaterally. No clubbing or cyanosis. PSYCHIATRIC: Cooperative. LABORATORY DATA: WBC 6.4, hemoglobin 9.4, platelets 142. IMPRESSION: 1. Acute blood loss anemia, most likely diverticulosis, ( ) with internal hemorrhoids, hemoglobin is fairly stable. Amount of bleeding has reduced now. Gastroenterology is not planning for colonoscopy. ( ) back. 2. Acute on chronic kidney disease improved now, Stage III. 3. Symptomatic anemia on admission. 4. Hypomagnesemia. 5. History of bladder cancer, and prostate cancer, status post resection. 6. Type 2 diabetes mellitus, [id number]. 7. History of CAD, status post stent placement. 8. Macrocytic anemia. 9. Hypertension. 10. Hyperlipidemia. 11. Hearing disorder/deafness. 12. Deep venous thrombosis prophylaxis, SCDs. DISCUSSION AND PLAN: This 80 -year-old male admitted to the hospital with a gastrointestinal bleed and hemoglobin is failure stable now. We will continue to monitor hemoglobin and hematocrit. We will restart back on the Lasix dose and will give one dose of extra IV Lasix today. Gastroenterology is following the patient. Further recommendations based on the clinical course. MTDD
[2016-04-03 16:44] LABS: Glucose,Whole Blood 160 mg/dL (75-99)
[2016-04-03] MEDS: SODIUM CHLORIDE 0.9% 1,000 ML IV SCH (16:50)
[2016-04-03] MEDS: VERAPAMIL SR 180 MG TABLET.ER PO SCH (16:50)
--- NOTE | 2016-04-03 18:50 | PN ---
DATE OF SERVICE: 04/03/2016 The patient is an 80 pleasant white male admitted to the hospital with acute lower gastrointestinal bleed. He had multiple episodes of rectal blood per rectum for the last three days and finally it subsided. Last bowel movement was yesterday morning. This morning he had one brown stool. Denies any abdominal pain. Reports no nausea or vomiting. On physical examination, appears comfortable in no apparent distress. Vital signs stable. Blood pressure is 128/58, pulse 61, temperature 97. HEENT: Conjunctivae pink. Sclerae anicteric. Oral cavity, no lesions. NECK: No JVD or lymph node enlargement. Chest was clear to auscultation. HEART: Regular rate and rhythm. ABDOMEN: Soft. Bowel sounds are positive. No organomegaly. EXTREMITIES: No pedal edema. SKIN: No rashes. NEURO: He is alert and oriented x3. No focal deficits. Labs done today: Hemoglobin is 8.9. The rest of the labs are within normal limits. IMPRESSION: Acute lower gastrointestinal bleed, possibly diverticular in nature. Last colonoscopy pleasant April 2014 showed diverticulosis. Patient is hemodynamically stable, no further bleeding for the last 24 hours. RECOMMENDATIONS: 1. Will advance to soft diet. 2. Repeat CBC tomorrow morning and if it is stable he can be discharged home with outpatient follow up in 2 weeks.
[2016-04-03 20:37] LABS: Glucose,Whole Blood 165 mg/dL (75-99)
[2016-04-03] MEDS: PRAMIPEXOLE 0.125 MG TAB PO SCH (21:35)
[2016-04-03] MEDS: traMADol 50 MG TAB PO PRN (21:36)
[2016-04-03] MEDS: ATORVASTATIN 80 MG TAB PO SCH (21:36)
[2016-04-03] MEDS: INSULIN GLARGINE 100 UNIT/ML 10 ML VIAL SQ SCH (21:37)
[2016-04-04 06:27] LABS: Basophils % (A) 0 %; CH 31.9; CHCM 31.9; Eosinophils # (A) 0.2 k/uL (0-0.7); Eosinophils % (A) 2 %; HCT 29.2 % (39.0-53.0); HDW 3.33; HGB 9.1 gm/dL (13.0-17.5); Hypochromasia Slight; Luc # (Auto) 0.14; Luc % (Auto) 2; Lymphocytes # (A) 0.7 k/uL (1.0-4.8); Lymphocytes % (A) 11 %; MCH 31.3 pg (25.0-35.0); MCHC 31.1 g/dL (31.0-37.0); MCV 100.6 fL (80.0-100.0); Macrocytosis Slight; Mean Platelet Volume 8.6; Monocytes # (A) 0.6 k/uL (0-1.0); Monocytes % (A) 9 %; Neutrophils % (A) 76 %; RDW 15.9 % (11.5-15.5); WBC 6.6 k/uL (3.8-10.6); WBC (Perox) 7.27
[2016-04-04 06:35] LABS: Glucose,Whole Blood 103 mg/dL (75-99)
[2016-04-04 06:36] LABS: Potassium 5.1 mmol/L (3.5-5.1)
[2016-04-04] MEDS: ALLOPURINOL 100 MG TAB PO SCH (07:57)
[2016-04-04] MEDS: SODIUM CHLORIDE 0.9% 1,000 ML IV SCH (07:58)
[2016-04-04] MEDS: METOPROLOL TARTRATE 25 MG TAB PO SCH (07:58)
[2016-04-04] MEDS: hydrALAZINE HCL 50 MG TAB PO SCH (07:58)
[2016-04-04] MEDS: FUROSEMIDE 40 MG TAB PO SCH (07:58)
[2016-04-04] MEDS: MAGNESIUM OXIDE 400 MG TAB PO SCH (07:58)
[2016-04-04] MEDS: LISINOPRIL 5 MG TAB PO SCH (07:58)
[2016-04-04] MEDS ORDERED: PANTOPRAZOLE 40 MG TABLET PO SCH (09:00)
--- NOTE | 2016-04-04 10:43 | P.PN ---
Subjective Principal diagnosis: Rectal bleeding 80-year-old male admitted with acute lower GI bleed. No recurrence of rectal bleeding 24 hours. Last bowel movement yesterday brown in color. Tolerating diet. Denies abdominal pain. Afebrile. Objective - Vital Signs Vital signs: Vital Signs Temp 98.1 F 04/04/16 07:58 Pulse 61 04/04/16 07:58 Resp 18 04/04/16 07:58 BP 141/61 04/04/16 07:58 Pulse Ox 95 04/04/16 07:58 Intake & Output 04/03/16 04/04/16 04/04/16 18:59 06:59 18:59 Intake Total 402 310 180 Output Total 1125 450 200 Balance -723 -140 -20 Weight 76.3 kg Intake: Intake, IV Titration 160 Amount Sodium Chloride 0.9% 1, 160 000 ml @ 20 mls/hr IV . Q24H [facility] Rx#:[id number] Oral 402 150 180 Output: Urine 1125 450 200 Other: Voiding Method Ileal Conduit (Right) Ileal Conduit (Right) Ileal Conduit ( Right) # Voids 1 - Exam General appearance: The patient is alert, oriented, in no acute distress. HET: Head is normocephalic and atraumatic. Pupils are equal and reactive. Oropharynx is clear without lesions. Neck: Supple without lymphadenopathy. Trachea midline. Heart: S1 S2. Regular rate and rhythm. Lungs: No crackles or wheezes are heard. Abdomen: Soft, nontender, nondistended with bowel sounds. No peritoneal signs. No palpable organomegaly or masses. Extremities: Normal skin color and turgor. No cyanosis, rash, ulceration, clubbing, or edema. Radial and pedal pulses are 2/4 bilaterally. Neurological: No focal deficits. Strength and sensation are grossly intact. - Labs CBC & Chem 7: 04/04/16 06:09 04/04/16 06:07 Labs: Abnormal Lab Results - Last 24 Hours (Table) 04/03/16 04/03/16 04/03/16 Range/Units 11:35 16:42 20:36 RBC (4.30-5.90) m/uL Hgb (13.0-17.5) gm/dL Hct (39.0-53.0) % MCV (80.0-100.0) fL RDW (11.5-15.5) % Plt Count (150-450) k/uL Lymphocytes # (1.0-4.8) k/uL Chloride (98-107) mmol/L Carbon Dioxide (22-30) mmol/L BUN (9-20) mg/dL Creatinine (0.66-1.25) mg/dL Glucose (74-99) mg/dL POC Glucose (mg/dL) 109 H 160 H 165 H (75-99) mg/dL 04/04/16 04/04/16 04/04/16 Range/Units 06:07 06:09 06:34 RBC 2.90 L (4.30-5.90) m/uL Hgb 9.1 L (13.0-17.5) gm/dL Hct 29.2 L (39.0-53.0) % MCV 100.6 H (80.0-100.0) fL RDW 15.9 H (11.5-15.5) % Plt Count 148 L (150-450) k/uL Lymphocytes # 0.7 L (1.0-4.8) k/uL Chloride 112 H (98-107) mmol/L Carbon Dioxide 16 L (22-30) mmol/L BUN 55 H (9-20) mg/dL Creatinine 2.70 H (0.66-1.25) mg/dL Glucose 105 H (74-99) mg/dL POC Glucose (mg/dL) 103 H (75-99) mg/dL Assessment and Plan Plan: Impression: Acute lower GI bleed resolved possibly diverticular in nature. Last colonoscopy April 2014 showed diverticulosis. Hemodynamically stable and improved from yesterday. Plan: Agreeable for discharge. Continue supportive measures. We'll sign off and be available for additional questions or concerns. Return to office in 2 weeks.
[2016-04-04 11:26] VITALS: BP 142/77; PULSE 60; TEMP 97.1
[2016-04-04 12:08] LABS: Glucose,Whole Blood 135 mg/dL (75-99)
--- NOTE | 2016-04-04 12:09 | PN ---
DATE OF SERVICE: 04/03/2016 INTERVAL HISTORY: Mr. Hidalgo is an 80-year-old male who was admitted to the hospital with blood per rectum. The patient underwent 1 unit of PRBC and was monitored in the ICU. Currently, hemoglobin is stable. Patient is tolerating a p.o. diet and patient says that his rectal bleeding has subsided. Patient had a colonoscopy about 1-1/2 years back, showed diverticulosis. Gastroenterology is following this patient. Otherwise, patient denied any complaints of chest pain. Short of breath much improved now after starting Lasix. Otherwise, denied any overnight issues. REVIEW OF SYSTEMS: CONSTITUTIONAL: No fever. No chills. RESPIRATORY: No cough or sputum production. CARDIOVASCULAR: No chest pain, short of breath. ABDOMEN: No nausea, vomiting, abdominal pain. GENITOURINARY: Negative. ENDOCRINE: Negative. PSYCHIATRY: Negative. SKIN: Negative. All other 14 point review of systems, negative except as above. CURRENT MEDICATIONS: Reviewed. PHYSICAL EXAMINATION: An 80-year-old male lying in bed comfortably. Awake, alert, oriented x3, appears in no apparent distress. VITALS: Blood pressure is 139/69, pulse is 60, respirations 16, temperature afebrile, pulse ox 97% on room air. HEENT: Atraumatic, normocephalic. Neck is supple. No JVD. CVS EXAM: S1, S2 heard. No murmurs, no gallop, no rub. LUNGS: Bilateral air entry is present. Minimal crackles at the left base. No wheezing. Nonlabored breathing. Abdomen is soft, nontender. Bowel sounds are present. NEURO: Alert and orient x3. No focal neurologic deficits. Cranial nerves grossly intact. EXTREMITIES: No edema. Pulses palpable bilaterally. No clubbing or cyanosis. PSYCHIATRIC: Cooperative. LABORATORY DATA: WBC 6.1, hemoglobin 8.9, platelets 156. Sodium 139, potassium 5.1, chloride 112, bicarb is 16, BUN 48, creatinine 2.28. Magnesium 1.9. IMPRESSION: 1. Acute blood loss anemia, most likely secondary to diverticulosis, hemoglobin is fairly stable at 8.9 today, slightly dropped from 9.3 yesterday. No further bleeding as per the patient. Will continue to monitor hemoglobin and advance diet as tolerated. 2. Acute on chronic kidney disease stage III, likely prerenal. 3. Symptomatic anemia on admission. 4. Hypomagnesemia and history of bladder cancer, and prostate cancer, status post resection. 5. Type 2 diabetes mellitus, [id number]. 6. History of coronary artery disease, status post stent placement. 7. Macrocytic anemia. 8. Hypertension. 9. Hyperlipidemia. 10. Hearing disorder, deafness. 11. Deep venous thrombosis prophylaxis. HISTORY OF PRESENT ILLNESS: An 80-year-old male admitted to the hospital with GI bleed and currently hemoglobin is fairly stable at 8.9. Will continue to monitor H&H and continue with the current medications and advanced diet as tolerated. Anticipate discharge tomorrow if the hemoglobin is stable. GI is following this patient.
[2016-04-04] MEDS: VERAPAMIL SR 180 MG TABLET.ER PO SCH (13:33)
--- NOTE | 2016-04-04 15:02 | P.PN ---
Subjective Progress note dated 04/04/2016 This is an 80-year-old gentleman who was admitted with initially with a diagnosis of GI bleed. The patient's doing well. Hemoglobin is stable. The patient is apparently going to be discharged home today. Other than that the patient is doing very well. The bleeding is thought to be diverticular in nature. Seen by Dr. Kandi Montenegro yesterday. From Dr. Elmore's standpoint and also from my standpoint today, could be cleared for discharge. Objective - Vital Signs Vital signs: Vital Signs Temp 97.1 F L 04/04/16 11:05 Pulse 60 04/04/16 11:05 Resp 18 04/04/16 11:05 BP 142/77 04/04/16 11:05 Pulse Ox 96 04/04/16 11:05 Intake & Output 04/03/16 04/04/16 04/04/16 18:59 06:59 18:59 Intake Total 402 310 360 Output Total 1125 450 600 Balance -723 -140 -240 Weight 76.3 kg Intake: Intake, IV Titration 160 Amount Sodium Chloride 0.9% 1, 160 000 ml @ 20 mls/hr IV . Q24H [facility] Rx#:[id number] Oral 402 150 360 Output: Urine 1125 450 600 Other: Voiding Method Ileal Conduit (Right) Ileal Conduit (Right) Ileal Conduit ( Right) # Voids 1 - Exam No acute distress, oriented 3. HEENT examination is grossly unremarkable. Mucous membranes are moist. No oral lesions. Supple. Full range of motion. No adenopathy or thyromegaly. Cardio vascular examination reveals regular rhythm rate. S1-S2 normal. Lungs are clear breath sounds are equal. Abdomen soft bowel sounds are heard. Extremities are intact. - Labs CBC & Chem 7: 04/04/16 06:09 04/04/16 06:07 Labs: Abnormal Lab Results - Last 24 Hours (Table) 04/03/16 04/03/16 04/04/16 Range/Units 16:42 20:36 06:07 RBC (4.30-5.90) m/uL Hgb (13.0-17.5) gm/dL Hct (39.0-53.0) % MCV (80.0-100.0) fL RDW (11.5-15.5) % Plt Count (150-450) k/uL Lymphocytes # (1.0-4.8) k/uL Chloride 112 H (98-107) mmol/L Carbon Dioxide 16 L (22-30) mmol/L BUN 55 H (9-20) mg/dL Creatinine 2.70 H (0.66-1.25) mg/dL Glucose 105 H (74-99) mg/dL POC Glucose (mg/dL) 160 H 165 H (75-99) mg/dL 04/04/16 04/04/16 04/04/16 Range/Units 06:09 06:34 12:02 RBC 2.90 L (4.30-5.90) m/uL Hgb 9.1 L (13.0-17.5) gm/dL Hct 29.2 L (39.0-53.0) % MCV 100.6 H (80.0-100.0) fL RDW 15.9 H (11.5-15.5) % Plt Count 148 L (150-450) k/uL Lymphocytes # 0.7 L (1.0-4.8) k/uL Chloride (98-107) mmol/L Carbon Dioxide (22-30) mmol/L BUN (9-20) mg/dL Creatinine (0.66-1.25) mg/dL Glucose (74-99) mg/dL POC Glucose (mg/dL) 103 H 135 H (75-99) mg/dL Assessment and Plan (1) Gastrointestinal hemorrhage Status: Acute (2) Diabetes Status: Acute (3) Partial small bowel obstruction Status: Acute Plan: Plan for 04/04/2016 In all likelihood, the patient be discharged home today. The patient seemed be doing relatively well. No further bleeding. Hemoglobin is stable. Patient feels well. We'll follow up with his primary doctor. Time with Patient: Less than 30
--- NOTE | 2016-04-20 10:35 | DS ---
DATE OF ADMISSION: 03/30/2016 DATE OF DISCHARGE: 04/04/2016 DISCHARGE DIAGNOSES: 1. Acute blood loss anemia, most likely secondary to diverticulosis. Hemoglobin is stable today. No further bleeding as per patient and clear from gastrointestinal standpoint. 2. Acute on chronic kidney disease, stage III likely prerenal, improved now. 3. Symptomatic anemia on admission. 4. Hypomagnesemia. 5. History of bladder cancer and prostate cancer, status post resection. 6. Type 2 diabetes mellitus, non-insulin dependent. 7. History of coronary artery disease, status post stent placement. 8. Macrocytic anemia. 9. Hypertension. 10. Hyperlipidemia. 11. Hearing disorder/deafness. 12. Deep venous thrombosis prophylaxis, SCD. HOSPITAL COURSE: Mr. Hidalgo is an 80-year-old male with known history of multiple medical problems as discussed above, admitted to the hospital with blood per rectum. Patient underwent 1 unit of PRBC and was monitored in the ICU due to active bleeding. Patient had a colonoscopy sometime earlier this year, which was essentially negative and Gastroenterology has seen the patient and recommended conservative management at this time. Patient is being monitored with H&H and currently patient is tolerating p.o. diet and no active bleeding noted now. Hemoglobin is stable and GI recommended outpatient followup at this time. Otherwise, patient is hemodynamically stable and stable hemoglobin as well and is cleared for discharge from GI standpoint and is being discharged home today. DISCHARGE PHYSICAL EXAMINATION: An 80-year-old male lying in bed comfortably. Awake, alert, oriented x3. Appears to be no apparent. VITALS: Blood pressure is 142/77, pulse is a 60, respirations 18, temperature afebrile, pulse ox 96% on room air. Laboratory data reviewed. Hemoglobin 9.1 today, MCV 100.6, platelets 148. Sodium 141, potassium 5.1, chloride 112, bicarb is 16, BUN 55, creatinine 2.7. Discharge physical examination done. Discharge medications include: 1. Aspirin 81 mg p.o. daily. 2. Atorvastatin 80 mg p.o. at bedtime. 3. [place] 5 one tablet q.8 hourly p.r.n. for pain. 4. Lantus 60 units subcu at bedtime. 5. Verapamil 360 mg p.o. p.c. lunch. 6. Vitamin D2, 50,000 units p.o. q.14 days. 7. Mirapex 0.125 mg p.o. at bedtime. 8. Allopurinol 100 mg p.o. daily. 9. Ropinirole 3 mg p.o. at bedtime. 10. Magnesium 400 mg p.o. daily. 11. Calcitriol 0.25 mcg p.o. Sunday. 12. Metoprolol 25 mg p.o. daily. 13. Hydralazine 50 mg p.o. t.i.d. 14. Digoxin ( ) mcg p.o. Sunday, Sunday, Sunday. 15. Lasix 40 mg p.o. daily. 16. Ranitidine 150 mg p.o. b.i.d. 17. Sitagliptin 50 mg p.o. daily. Patient will be discharged home and follow with Dr. Darren Velasquez and follow with Dr. Lauri Gustafson with home health care services.
== END 2016-04-04 15:56 | disposition home health service (06) | DRG 378 ==
LOC: EC 13:06 → 6SEL 15:05 → 6ICU 03-31 13:03 → 6SEL 04-02 10:40
PROVIDERS: ADMIT Internal Medicine; ATTEND Internal Medicine
PROC: 30233N1 Transfusion of Nonautologous Red Blood Cells into Peripheral Vein, Percutaneous Approach (ICD-10-PCS; principal; 2016-03-31)
DX: K57.91 Diverticulosis of intestine, part unspecified, without perforation or abscess with bleeding (principal); N18.4 Chronic kidney disease, stage 4 (severe); K56.60 Unspecified intestinal obstruction; E11.22 Type 2 diabetes mellitus with diabetic chronic kidney disease; D62 Acute posthemorrhagic anemia; E11.40 Type 2 diabetes mellitus with diabetic neuropathy, unspecified; I48.2 Chronic atrial fibrillation; D53.9 Nutritional anemia, unspecified; E83.42 Hypomagnesemia; N28.9 Disorder of kidney and ureter, unspecified; I12.9 Hypertensive chronic kidney disease with stage 1 through stage 4 chronic kidney disease, or unspecified chronic kidney disease; G25.81 Restless legs syndrome; E78.5 Hyperlipidemia, unspecified; M10.9 Gout, unspecified; K64.8 Other hemorrhoids; I25.10 Atherosclerotic heart disease of native coronary artery without angina pectoris; M19.90 Unspecified osteoarthritis, unspecified site; H91.90 Unspecified hearing loss, unspecified ear; K21.9 Gastro-esophageal reflux disease without esophagitis; Z87.891 Personal history of nicotine dependence; Z85.46 Personal history of malignant neoplasm of prostate; Z85.51 Personal history of malignant neoplasm of bladder; Z95.0 Presence of cardiac pacemaker; Z90.49 Acquired absence of other specified parts of digestive tract; Z98.42 Cataract extraction status, left eye; Z98.41 Cataract extraction status, right eye; Z95.5 Presence of coronary angioplasty implant and graft; Z79.84 Long term (current) use of oral hypoglycemic drugs; Z79.82 Long term (current) use of aspirin; Z79.4 Long term (current) use of insulin; Z79.899 Other long term (current) drug therapy
CPT/HCPCS: 36415; 71020; 80048; 80053; 82272; 83690; 83735; 84100; 84484; 85025; 85027; 85730; 86850; 86900; 86901; 86920; 90686; 93005; 96360; 99285

== ENCOUNTER 2016-04-11 10:43 | Inpatient (IN) | payer MEDICARE, BC ==
--- NOTE | 2016-04-11 11:33 | ED ---
General Adult HPI - General Chief complaint: Recheck/Abnormal Lab/Rx Stated complaint: Kidneys problems Time Seen by Provider: 04/11/16 11:03 Source: patient, family Mode of arrival: ambulatory Limitations: no limitations - History of Present Illness Initial comments: This 80-year-old white male presents with family with a complaint of having kidney problems. He apparently had blood work done approximate 4 days ago through his account development representative office. His account development representative told him to come in as his kidneys have worsened. They relate that he has stage IV kidney disease but is not on dialysis at this point in time. He has chronic shortness of breath, chronic decreased energy, and chronic lower extremity edema. He denies any significant change in the symptoms. He denies any chest pain or pain whatsoever. He does have a history of diabetes and his kidney disease may be related to this. He denies any other complaints or modifying factors. - Related Data Home Medications Medication Instructions Recorded Confirmed Aspirin 81 mg PO DAILY 08/26/13 04/11/16 Atorvastatin [Lipitor] 80 mg PO HS 08/26/13 04/11/16 Digoxin [Lanoxin] 125 mg PO MOWEFR 08/26/13 04/11/16 Furosemide [Lasix] 40 mg PO BID 08/26/13 04/11/16 HYDROcodone/APAP 5-325MG [Crum 1 tab PO Q8HR PRN 08/26/13 04/11/16 5-325] Insulin Glargine [Lantus] 60 units SQ HS 08/26/13 04/11/16 Verapamil HCl [Verapamil ER] 360 mg PO PC-LUNCH 08/26/13 04/11/16 glipiZIDE [Glucotrol] 10 mg PO AC-BID 08/26/13 04/11/16 Ergocalciferol [Vitamin D2 50,000 unit PO Q14D 03/10/14 04/11/16 (DRISDOL)] Pramipexole [Mirapex] 0.125 mg PO HS 03/10/14 04/11/16 Allopurinol 100 mg PO DAILY 11/10/14 04/11/16 Enalapril Maleate 2.5 mg PO DAILY 11/10/14 04/11/16 Hydrochlorothiazide 25 mg PO BID 11/10/14 04/11/16 Omeprazole 40 mg PO DAILY 11/10/14 04/11/16 rOPINIRole HCL [Requip] 3 mg PO HS 11/10/14 04/11/16 Magnesium 400 mg PO DAILY 10/05/15 04/11/16 Calcitriol [Rocaltrol] 0.25 mcg PO WEST 03/30/16 04/11/16 Metoprolol Tartrate [Lopressor] 25 mg PO DAILY 03/30/16 04/11/16 hydrALAZINE HCL [Apresoline] 50 mg PO TID 03/30/16 04/11/16 Allergies Allergy/AdvReac Type Severity Reaction Status Date / Time No Known Allergies Allergy Verified 04/11/16 11:04 Review of Systems ROS Statement: Those systems with pertinent positive or pertinent negative responses have been documented in the HPI. ROS Other: All systems not noted in ROS Statement are negative. Past Medical History Past Medical History: Atrial Fibrillation, Cancer, Diabetes Mellitus, GERD/ Reflux, Hearing Disorder / Deafness, Hyperlipidemia, Hypertension, Osteoarthritis (OA), Pneumonia, Prostate Disorder, Renal Disease Additional Past Medical History / Comment(s): BLADDER/PROSTATE CANCER with surgeries, IDDM type II, rectal polyp, diverticular dx, [place] bilaterally, CKD stage IV, RLS, gout bilateral feet, neuropathy bilateral legs/feet and hands, R knee "gives out" at times. History of Any Multi-Drug Resistant Organisms: None Reported Past Surgical History: Bladder Surgery, Cholecystectomy, Heart Catheterization With Stent, Hernia Repair, Pacemaker, Prostate Surgery Additional Past Surgical History / Comment(s): UROSTOMY D/T BLADDER, prostatectomy due to prostate CA, BILAT CATARACT REMOVAL, X4 CARDIAC STENTS, colonoscopy with bx, bilateral inguinal hernia repairs with left side done twice then abdominal wound debridement and incisional hernia repair, Past Anesthesia/Blood Transfusion Reactions: No Reported Reaction Date of Last Stent Placement:: 1996 Type of Cardiac Device: Permanent Pacemaker Device Placement Date:: 1996 Past Psychological History: No Psychological Hx Reported Additional Psychological History / Comment(s): Pt resides with his spouse. He uses a cane or a scooter to get around. He drives some. His spouse can drive as well. Smoking Status: Former smoker Past Alcohol Use History: None Reported Additional Past Alcohol Use History / Comment(s): Pt started smoking in 1951 and quit in 2006 Past Drug Use History: None Reported - Past Family History Father Family Medical History: Renal Disease Additional Family Medical History / Comment(s): AT 34 of "uremic poisoning ". Mother History Unknown: Yes Family Medical History: Myocardial Infarction (MS) Additional Family Medical History / Comment(s): OF MS AGE 64 General Exam - General Exam Comments Initial Comments: GENERAL: The patient is well nourished and well hydrated. VITAL SIGNS: Heart rate, blood pressure, respiratory rate reviewed as recorded in nurse's notes. EYES: Pupils are round and reactive. Extraocular movements are intact. No conjunctival / lid redness or swelling. ENT: No external evidence of injury, swelling, or ecchymosis. Airway is patent. Throat is clear. NECK: Nontender. No swelling or evidence of injury. No subcutaneous emphysema. Trachea is midline. No thyroid mass. HEART: Regular rate and rhythm. Good peripheral pulses. LUNGS/CHEST: Breath sounds clear and equal bilaterally. No rales, rhonchi, or wheezes. No ecchymosis, subcutaneous emphysema, or tenderness. ABDOMEN: Abdomen soft without tenderness. No palpable masses or organomegaly. No peritoneal signs. No abdominal wall swelling or ecchymosis. EXTREMITIES: No extremity tenderness. Normal muscle tone and function. No thoracolumbar tenderness. NEUROLOGIC: Sensation is grossly intact. Cranial nerve exam reveals face is symmetrical, tongue is midline, speech is clear. SKIN: No abrasions or ecchymosis is noted. No induration or masses noted. PSYCHIATRIC: Alert and oriented. Appropriate behavior and judgment. Limitations: no limitations Course Vital Signs 04/11/16 10:53 Temperature 97.4 F L Pulse Rate 60 Respiratory 16 Rate Blood Pressure 144/63 O2 Sat by Pulse 98 Oximetry Medical Decision Making - Medical Decision Making The patient was seen and examined. All diagnostics were reviewed. An IV is started. The EKG shows a wide to her are as rhythm consistent with a paced rhythm. There is left axis deviation. The patient has a QRS duration of 192 and a QTc interval 516. The chest x-ray showed evidence of COPD and interstitial lung disease. The laboratory came back showing a decreased close at 42. He receives one half amp of D50 as well as some food. He does not appear to be affected by this low blood sugar currently. He relates that he did not have much to eat today and his hypoglycemia is likely related to this. His BUN is elevated at 97 and the creatinine is elevated at 3.05. The previous creatinine was 3.1 approximate 4 days ago and the B1 was 76. His urine was 55 on 04/04/2016 and his creatinine was 2.07 on 04/04/2016. It appears as though his renal function has decreased over the past week. The exact cause is undetermined. The case is discussed with nephrology and they requested patient be admitted to the hospital for this acute kidney disease. They recommend a bladder scan, urinalysis, and renal ultrasound. The case will be discussed with internal medicine and they are future and patient will be admitted for further treatment. - Lab Data Result diagrams: 04/11/16 12:07 04/11/16 12:07 Lab Results 04/11/16 04/11/16 04/11/16 Range/Units 12:07 12:07 12:07 WBC 7.1 (3.8-10.6) k/uL RBC 2.90 L (4.30-5.90) m/uL Hgb 9.0 L (13.0-17.5) gm/dL Hct 28.8 L (39.0-53.0) % MCV 99.3 (80.0-100.0) fL MCH 30.9 (25.0-35.0) pg MCHC 31.1 (31.0-37.0) g/dL RDW 15.9 H (11.5-15.5) % Plt Count 199 (150-450) k/uL Neutrophils % 80 % Lymphocytes % 10 % Monocytes % 6 % Eosinophils % 2 % Basophils % 0 % Neutrophils # 5.7 (1.3-7.7) k/uL Lymphocytes # 0.7 L (1.0-4.8) k/uL Monocytes # 0.4 (0-1.0) k/uL Eosinophils # 0.1 (0-0.7) k/uL Basophils # 0.0 (0-0.2) k/uL Hypochromasia Slight Poikilocytosis Slight Macrocytosis Slight PT (9.0-12.0) sec INR (<1.1) APTT (22.0-30.0) sec Sodium 142 (137-145) mmol/L Potassium 5.2 H (3.5-5.1) mmol/L Chloride 111 H (98-107) mmol/L Carbon Dioxide 16 L (22-30) mmol/L Anion Gap 15 mmol/L BUN 97 H* (9-20) mg/dL Creatinine 3.05 H (0.66-1.25) mg/dL Est GFR (MDRD) Af Amer 24 (>60 ml/min/1.73 sqM) Est GFR (MDRD) Non-Af 20 (>60 ml/min/1.73 sqM) Glucose 42 L* (74-99) mg/dL POC Glucose (mg/dL) (75-99) mg/dL POC Glu Well Testing Operator ID Calcium 9.3 (8.4-10.2) mg/dL Phosphorus 4.1 (2.5-4.5) mg/dL Magnesium 1.9 (1.6-2.3) mg/dL Total Bilirubin 0.4 (0.2-1.3) mg/dL AST 34 (17-59) U/L ALT 124 H (21-72) U/L Alkaline Phosphatase 138 H (38-126) U/L Total Creatine Kinase 82 (55-170) U/L CK-MB (CK-2) 2.5 H* (0.0-2.4) ng/mL CK-MB (CK-2) Rel Index 3.0 Troponin I <0.012 (0.000-0.034) ng/mL NT-Pro-B Natriuret Pep pg/mL Total Protein 6.4 (6.3-8.2) g/dL Albumin 3.7 (3.5-5.0) g/dL Digoxin 1.0 ng/mL 04/11/16 04/11/16 04/11/16 Range/Units 12:07 12:07 13:04 WBC (3.8-10.6) k/uL RBC (4.30-5.90) m/uL Hgb (13.0-17.5) gm/dL Hct (39.0-53.0) % MCV (80.0-100.0) fL MCH (25.0-35.0) pg MCHC (31.0-37.0) g/dL RDW (11.5-15.5) % Plt Count (150-450) k/uL Neutrophils % % Lymphocytes % % Monocytes % % Eosinophils % % Basophils % % Neutrophils # (1.3-7.7) k/uL Lymphocytes # (1.0-4.8) k/uL Monocytes # (0-1.0) k/uL Eosinophils # (0-0.7) k/uL Basophils # (0-0.2) k/uL Hypochromasia Poikilocytosis Macrocytosis PT 10.9 (9.0-12.0) sec INR 1.1 (<1.1) APTT 25.3 (22.0-30.0) sec Sodium (137-145) mmol/L Potassium (3.5-5.1) mmol/L Chloride (98-107) mmol/L Carbon Dioxide (22-30) mmol/L Anion Gap mmol/L BUN (9-20) mg/dL Creatinine (0.66-1.25) mg/dL Est GFR (MDRD) Af Amer (>60 ml/min/1.73 sqM) Est GFR (MDRD) Non-Af (>60 ml/min/1.73 sqM) Glucose (74-99) mg/dL POC Glucose (mg/dL) 44 L (75-99) mg/dL POC Glu Well Testing Operator ID Starbuck, Aicha Calcium (8.4-10.2) mg/dL Phosphorus (2.5-4.5) mg/dL Magnesium (1.6-2.3) mg/dL Total Bilirubin (0.2-1.3) mg/dL AST (17-59) U/L ALT (21-72) U/L Alkaline Phosphatase (38-126) U/L Total Creatine Kinase (55-170) U/L CK-MB (CK-2) (0.0-2.4) ng/mL CK-MB (CK-2) Rel Index Troponin I (0.000-0.034) ng/mL NT-Pro-B Natriuret Pep 6350 pg/mL Total Protein (6.3-8.2) g/dL Albumin (3.5-5.0) g/dL Digoxin ng/mL 04/11/16 Range/Units 13:31 WBC (3.8-10.6) k/uL RBC (4.30-5.90) m/uL Hgb (13.0-17.5) gm/dL Hct (39.0-53.0) % MCV (80.0-100.0) fL MCH (25.0-35.0) pg MCHC (31.0-37.0) g/dL RDW (11.5-15.5) % Plt Count (150-450) k/uL Neutrophils % % Lymphocytes % % Monocytes % % Eosinophils % % Basophils % % Neutrophils # (1.3-7.7) k/uL Lymphocytes # (1.0-4.8) k/uL Monocytes # (0-1.0) k/uL Eosinophils # (0-0.7) k/uL Basophils # (0-0.2) k/uL Hypochromasia Poikilocytosis Macrocytosis PT (9.0-12.0) sec INR (<1.1) APTT (22.0-30.0) sec Sodium (137-145) mmol/L Potassium (3.5-5.1) mmol/L Chloride (98-107) mmol/L Carbon Dioxide (22-30) mmol/L Anion Gap mmol/L BUN (9-20) mg/dL Creatinine (0.66-1.25) mg/dL Est GFR (MDRD) Af Amer (>60 ml/min/1.73 sqM) Est GFR (MDRD) Non-Af (>60 ml/min/1.73 sqM) Glucose (74-99) mg/dL POC Glucose (mg/dL) 130 H (75-99) mg/dL POC Glu Well Testing Operator ID Branch, Zachary Calcium (8.4-10.2) mg/dL Phosphorus (2.5-4.5) mg/dL Magnesium (1.6-2.3) mg/dL Total Bilirubin (0.2-1.3) mg/dL AST (17-59) U/L ALT (21-72) U/L Alkaline Phosphatase (38-126) U/L Total Creatine Kinase (55-170) U/L CK-MB (CK-2) (0.0-2.4) ng/mL CK-MB (CK-2) Rel Index Troponin I (0.000-0.034) ng/mL NT-Pro-B Natriuret Pep pg/mL Total Protein (6.3-8.2) g/dL Albumin (3.5-5.0) g/dL Digoxin ng/mL Disposition Clinical Impression: Acute kidney injury, Hypoglycemia, Hypertension, COPD (chronic obstructive pulmonary disease), Diabetes, Prolonged QT interval Disposition: ADMITTED IP TO THIS HOSP Condition: Fair Time of Disposition: 13:40 Decision Date: 04/11/16 Decision Time: 13:40
[2016-04-11 12:33] LABS: Basophils % (A) 0 %; CH 31.7; CHCM 32.1; Eosinophils # (A) 0.1 k/uL (0-0.7); Eosinophils % (A) 2 %; HCT 28.8 % (39.0-53.0); HDW 3.41; Hypochromasia Slight; Luc # (Auto) 0.12; Luc % (Auto) 2; Lymphocytes # (A) 0.7 k/uL (1.0-4.8); Lymphocytes % (A) 10 %; MCH 30.9 pg (25.0-35.0); MCHC 31.1 g/dL (31.0-37.0); MCV 99.3 fL (80.0-100.0); Macrocytosis Slight; Monocytes # (A) 0.4 k/uL (0-1.0); Monocytes % (A) 6 %; Neutrophils # (A) 5.7 k/uL (1.3-7.7); Neutrophils % (A) 80 %; Poikilocytosis Slight; RDW 15.9 % (11.5-15.5); WBC 7.1 k/uL (3.8-10.6); WBC (Perox) 7.79
[2016-04-11 12:39] LABS: Calcium 9.3 mg/dL (8.4-10.2); Magnesium 1.9 mg/dL (1.6-2.3); Phosphorous 4.1 mg/dL (2.5-4.5); Potassium 5.2 mmol/L (3.5-5.1); Total Bilirubin 0.4 mg/dL (0.2-1.3); Total Protein 6.4 g/dL (6.3-8.2)
[2016-04-11 12:42] LABS: INR 1.1 (<1.1); Partial Thromboplastin Time 25.3 sec (22.0-30.0); Prothrombin Time 10.9 sec (9.0-12.0)
--- NOTE | 2016-04-11 12:56 | XR ---
EXAMINATION TYPE: XR chest 2V DATE OF EXAM: 04/11/2016 12:52 PM COMPARISON: 03/30/2016 HISTORY: Difficulty breathing FINDINGS: Heart is enlarged and there is a diffuse interstitial pattern. Cardiac device is seen. Biapical pleur al thickening is noted. No pleural effusion. Degenerative change of the spine noted. IMPRESSION: 1. COPD and changes suggestive of interstitial chronic lung disease or congestion. Correlate clinical ly.
[2016-04-11] MEDS ORDERED: DEXTROSE 50%-WATER 50 ML SYRINGE IVP STA (13:01)
[2016-04-11 13:02] LABS: Creatine Kinase 82 U/L (55-170)
[2016-04-11 13:06] LABS: Glucose,Whole Blood 44 mg/dL (75-99)
[2016-04-11 13:12] LABS: Troponin I <0.012 ng/mL (0.000-0.034)
[2016-04-11 13:33] LABS: Glucose,Whole Blood 130 mg/dL (75-99)
[2016-04-11 13:37] LABS: Creatine Kinase MB 2.5 ng/mL (0.0-2.4)
[2016-04-11] MEDS ORDERED: ONDANSETRON 4 MG/2 ML VIAL IVP PRN (13:41)
[2016-04-11] MEDS ORDERED: NALOXONE 0.4 MG/ML 1 ML VIAL IV PRN (13:41)
[2016-04-11 14:12] LABS: Appearance,Urine Clear (Clear); Bacteria,Urine Moderate /hpf; Bilirubin,Urine Negative (Negative); Glucose,Urine (UA) Negative (Negative); Ketones,Urine Negative (Negative); Leukocyte Esterase,Urine Moderate (Negative); Mucus,Urine Rare /hpf; Nitrite,Urine Negative (Negative); Particle Count 2507; Protein,Urine Negative (Negative); Specific Gravity,Urine 1.004 (1.001-1.035); Squamous Epithelial Cell,Urine <1 /hpf (0-4); UA Billing (MACRO vs. MICRO) MICRO; Urobilinogen,Urine <2.0 mg/dL (<2.0); WBC,Urine 6 /hpf (0-5)
[2016-04-11] MEDS: SODIUM CHLORIDE 0.9% 1,000 ML IV SCH (15:38)
--- NOTE | 2016-04-11 16:11 | US ---
EXAMINATION TYPE: US kidneys/renal and bladder DATE OF EXAM: 04/11/2016 2:47 PM COMPARISON: Ultrasound kidneys 10 November 2015 CLINICAL HISTORY: pain, bladder CA EXAM MEASUREMENTS: Right Kidney: 14.0 x 6.1 x 7.1cm Left Kidney: 10.4 x 4.5 x 4.1 cm ANATOMY: Right Kidney: enlarged with several cysts, largest upper measuring 2.6 x 1.9 x 2.2 cm Left Kidney: difficult to visualize, thinned cortex Bladder: surgically absent There is no evidence for hydronephrosis at this point in time. No nephrolithiasis is seen. Enlarged right kidney, small left kidney IMPRESSION: stable exam Normal Values: Renal Length = 9 - 12cm Bladder Wall: < 0.3cm
[2016-04-11 17:34] LABS: Glucose,Whole Blood 163 mg/dL (75-99)
[2016-04-11] MEDS: HYDROcodone/APAP 5-325MG 1 EACH TAB PO PRN (17:34)
[2016-04-11] MEDS: INSULIN LISPRO (humaLOG) 300 UNIT/3 ML VIAL SQ SCH (17:35)
--- NOTE | 2016-04-11 19:08 | HP ---
DATE OF ADMISSION: 04/11/2016 The patient is an 80-year-old gentleman who came in after he was sent in from nephrology Clinic. Patient did get kidney function testing which ( ) baseline creatinine of around 2.5, now around 3.01. The patient denied any diarrhea, nausea or vomiting. The patient is on Lisinopril, bora inhibitor and Lasix. Potassium is elevated. The patient has some chronic lower extremity edema. Unknown whether the patient has congestive heart failure or not. The patient chest x-ray at this time did not show any significant pulmonary edema. I will obtain an echocardiogram. Patient although it was documented to have stage IV CKD from diabetes mellitus as per the previous physician's dictation noted, previous physician's dictation, the patient had an ultrasound of the kidneys which showed some ( ) kidneys bilaterally consistent with ( ). REVIEW OF SYSTEMS: CONSTITUTIONAL: No fever, no malaise, no fatigue. HEENT: No recent visual problems or hearing problems. Denied any sore throat. CARDIOVASCULAR: No chest pain, orthopnea, PND, no palpitations, no syncope. PULMONARY: No shortness of breath, no cough, no hemoptysis. GASTROINTESTINAL: No diarrhea, no nausea, no vomiting, no abdominal pain. Normoactive bowel sounds. NEUROLOGICAL: No headaches, no weakness, no numbness. HEMATOLOGICAL: Denies any bleeding or petechiae. GENITOURINARY: Denies any burning micturition, frequency, or urgency. MUSCULOSKELETAL/RHEUMATOLOGICAL: Denies any joint pain, swelling, or any muscle pain. ENDOCRINE: Denies any polyuria or polydipsia. The rest of the 14 point review of systems is negative. Home medications include: 1. Aspirin. 2. Atorvastatin. 3. Digoxin. 4. Lasix. 5. ( ). 6. Acetaminophen. 7. Glargine. 8. Verapamil. 9. Glipizide. 10. Primipaxole. 11. Enalapril. 12. Allopurinol. 13. ( ). 14. Magnesium. 15. Calcitriol. 16. Metoprolol. 17. Hydralazine. ALLERGIES: No known drug allergies. PAST MEDICAL HISTORY: Past medical history is significant for atrial fibrillation. I have not seen any anticoagulant medication on the patient. History of prostate cancer ( ) receive chemoradiation ( ). The patient has an ileostomy bag in place, draining clear fluid, bladder surgery, cholecystectomy, cardiac catheterization and stent placement, hernia repair, pacemaker and prostate surgery. PAST SURGICAL HISTORY: Significant for urostomy, prostatectomy and bilateral cataracts ( ) colonoscopy. SOCIAL HISTORY: Former smoker, quit smoking in 2011, denied any alcohol abuse or any drug abuse. FAMILY HISTORY: Father had ( ), mother had myocardial infarction, age 64. PHYSICAL EXAMINATION: VITAL SIGNS: Temperature 97.4 pulse of 60, respiratory rate of 16. Blood pressure 144/63. GENERAL: The patient is alert and oriented x3, not in any acute distress. Well developed, well nourished. HEENT: Pupils are round and equally reacting to light. EOMI. No scleral icterus. No conjunctival pallor. Normocephalic, atraumatic. No pharyngeal erythema. No thyromegaly. CARDIOVASCULAR: S1 and S2 present. No murmurs, rubs, or gallops. PULMONARY: Chest is clear to auscultation, no wheezing or crackles. ABDOMEN: Soft, nontender, nondistended, normoactive bowel sounds. No palpable organomegaly. GENITOURINARY: Patient has a right-sided ileostomy bag, is draining clear fluid. MUSCULOSKELETAL: No joint swelling or deformity. EXTREMITIES: No cyanosis, clubbing, or pedal edema. NEUROLOGICAL: Gross neurological examination did not reveal any focal deficits. SKIN: No rashes. LABORATORY DATA: CBC and BMP are significant for low hemoglobin of 9.0, probably related to anemia of chronic kidney disease and potassium is mildly elevated to 5.2, chloride of 111, bicarbonate of 30, saturating at 97%, BUN of 97, creatinine of 3.05, baseline is around 2.5, platelet count of 42,000. ASSESSMENT AND PLAN: 1. Acute on chronic renal failure, Stage IV, patient has diabetic nephropathy. Patient is getting gentle hydration. I will keep him on that. Because his cardiac status is unknown, I am not going to increase the IV fluids. We will monitor the kidney function. Nephrology was consulted. Patient appears to be mostly chronic renal disease. I do not believe nothing much can be done at this point of time. Patient will eventually end up on dialysis. 2. History of atrial fibrillation. Patient is not on anticoagulation, until I figure out why he is not anticoagulated, I will not start him on any blood thinners. Patient has a permanent pacemaker placement. Patient has a large ( ). 3. Atrial fibrillation, rate controlled at this point of time. Patient is not on any anticoagulation at this point of time. 4. Anion gap metabolic acidosis secondary to uremia as well as hyperchloremia. 5. Type 2 diabetes mellitus, will continue his regimen but will change his insulin to ( ) Lantus regimen rather than just Lantus at night time. Hold off on oral hypoglycemics medications. 6. Hypertension. Hold off on Enalapril because of his elevated potassium and acute renal failure. 7. Atrial fibrillation, rate controlled. Continue with verapamil and metoprolol. Patient has a colostomy bag. 8. Prostate cancer is in remission. 9. Restless leg syndrome for which patient is on Requip which will be continued. The patient is also on Mirapex which will be continued as well. 10. Hyperlipidemia. 11. Patient is on digoxin for probably for atrial fibrillation, we will obtain dig levels. Considering his poor renal function, digoxin may not be a great idea. Patient will easily end up being toxic. We will obtain an echocardiogram to assess the cardiac function as I do not see any echocardiogram in the previous medical record either at this hospital.
[2016-04-11] MEDS ORDERED: INSULIN GLARGINE 100 UNIT/ML 10 ML VIAL SQ SCH ×2 (21:00)
[2016-04-11] MEDS ORDERED: ATORVASTATIN 80 MG TAB PO SCH (21:00)
[2016-04-11] MEDS ORDERED: PRAMIPEXOLE 0.125 MG TAB PO SCH (21:00)
[2016-04-11] MEDS: FAMOTIDINE 20 MG TAB PO SCH (21:11)
[2016-04-11] MEDS: hydrALAZINE HCL 50 MG TAB PO SCH (21:12)
[2016-04-11 21:24] LABS: Glucose,Whole Blood 83 mg/dL (75-99)
[2016-04-11] MEDS: HEPARIN SODIUM,PORCINE 5,000 UNIT/ML 1 ML VIAL SQ SCH (23:34)
[2016-04-12 00:03] VITALS: RESP 20
[2016-04-12 02:06] LABS: Glucose,Whole Blood 102 mg/dL (75-99)
[2016-04-12] MEDS: SODIUM CHLORIDE 0.9% 1,000 ML IV SCH (05:55)
[2016-04-12 07:24] LABS: Glucose,Whole Blood 95 mg/dL (75-99)
[2016-04-12] MEDS: INSULIN LISPRO (humaLOG) 300 UNIT/3 ML VIAL SQ SCH ×2 (08:01→12:34)
[2016-04-12 08:07] LABS: Calcium 9.3 mg/dL (8.4-10.2); Potassium 5.5 mmol/L (3.5-5.1)
[2016-04-12 08:09] LABS: CH 31.2; CHCM 31.7; HCT 27.7 % (39.0-53.0); HDW 3.28; HGB 8.7 gm/dL (13.0-17.5); Hypochromasia Slight; MCH 31.2 pg (25.0-35.0); MCHC 31.5 g/dL (31.0-37.0); MCV 99.1 fL (80.0-100.0); Macrocytosis Slight; Mean Platelet Volume 7.3; RBC 2.79 m/uL (4.30-5.90); RDW 15.6 % (11.5-15.5); WBC 6.2 k/uL (3.8-10.6)
[2016-04-12] MEDS ORDERED: ALLOPURINOL 100 MG TAB PO SCH (09:00)
[2016-04-12] MEDS ORDERED: ASPIRIN 81 MG CHEW PO SCH (09:00)
[2016-04-12] MEDS ORDERED: ENOXAPARIN 40 MG/0.4 ML SYRINGE SQ SCH (09:00)
[2016-04-12] MEDS ORDERED: DIGOXIN 125 MCG TAB PO SCH (09:00)
[2016-04-12] MEDS ORDERED: METOPROLOL TARTRATE 25 MG TAB PO SCH (09:00)
[2016-04-12] MEDS ORDERED: PANTOPRAZOLE 40 MG/10 ML VIAL IV SCH (09:00)
[2016-04-12] MEDS: HEPARIN SODIUM,PORCINE 5,000 UNIT/ML 1 ML VIAL SQ SCH ×2 (09:04→15:37)
[2016-04-12] MEDS: hydrALAZINE HCL 50 MG TAB PO SCH ×2 (09:04→15:38)
[2016-04-12] MEDS: FAMOTIDINE 20 MG TAB PO SCH (09:05)
[2016-04-12] MEDS: HYDROcodone/APAP 5-325MG 1 EACH TAB PO PRN (09:17)
[2016-04-12 11:45] LABS: Glucose,Whole Blood 211 mg/dL (75-99)
[2016-04-12] MEDS ORDERED: ERGOCALCIFEROL 50,000 UNIT CAP PO SCH (12:00)
--- NOTE | 2016-04-12 12:07 | ECHOF ---
Referral Reason:r/o CHF MEASUREMENTS -------- HEIGHT: 165.1 cm WEIGHT: 77.1 kg BP: 162/78 RVIDd: 3.7 cm (< 3.3) IVSd: 1.3 cm (0.6 - 1.1) LVIDd: 4.2 cm (3.9 - 5.3) LVPWd: 1.3 cm (0.6 - 1.1) IVSs: 2.1 cm LVIDs: 3.5 cm LVPWs: 1.5 cm LA Diam: 4.1 cm (2.7 - 3.8) LAESV Index (A-L): 36.55 ml/m Ao Diam: 3.3 cm (2.0 - 3.7) AV Cusp: 2.1 cm (1.5 - 2.6) LA Diam: 3.8 cm (2.7 - 3.8) MV EXCURSION: 9.219 mm (> 18.000) MV EF SLOPE: 28 mm/s (70 - 150) EPSS: 0.8 cm MV E Ji: 1.53 m/s MV DecT: 182 ms MV A Ji: 0.78 m/s MV E/A Ratio: 1.97 AV maxP.89 mmHg AV meanP.04 mmHg AR PHT: 702 ms RAP: 5.00 mmHg RVSP: 42.89 mmHg FINDINGS -------- Paced rhythm. Pacerwire seen in RV and RA. This was a technically good study. There is mild concentric left ventricular hypertrophy. Overall left ventricular systolic function is normal with, an EF between 55 - 60 %. Sigmoid Septum The right ventricle is mild to moderately enlarged. LA is moderately dilated 34-39 ml/m2 RA appears enlarged. Aortic valve is trileaflet and is mildly thickened. There is mild aortic valve sclerosis. There is mild aortic regurgitation. The mitral valve leaflets are mildly thickened. Mild mitral annular calcification present. Mild mitral regurgitation is present. Moderate tricuspid regurgitation present. There is mild pulmonary hypertension. The right ventricular systolic pressure, as measured by Doppler, is 42.89mmHg. Trace/mild (physiologic) pulmonic regurgitation. The aortic root size is normal. Normal inferior vena cava with normal inspiratory collapse consistent with estimated right atrial pressure of 5 mmHg. There is no pericardial effusion. CONCLUSIONS -------- 1. Paced rhythm. 2. There is mild aortic regurgitation. 3. The mitral valve leaflets are mildly thickened. 4. Mild mitral annular calcification present. 5. Mild mitral regurgitation is present. 6. Moderate tricuspid regurgitation present. 7. There is mild pulmonary hypertension. 8. The right ventricular systolic pressure, as measured by Doppler, is 42.89mmHg. 9. Trace/mild (physiologic) pulmonic regurgitation. 10. The aortic root size is normal. 11. Normal inferior vena cava with normal inspiratory collapse consistent with estimated right atrial pressure of 5 mmHg. 12. Pacerwire seen in RV and RA. 13. There is no pericardial effusion. 14. This was a technically good study. 15. There is mild concentric left ventricular hypertrophy. 16. Overall left ventricular systolic function is normal with, an EF between 55 - 60 %. 17. Sigmoid Septum 18. RA appears enlarged. 19. Aortic valve is trileaflet and is mildly thickened. 20. There is mild aortic valve sclerosis. [place] HAND: Kelly Barker RDCS
[2016-04-12] MEDS ORDERED: VERAPAMIL SR 180 MG TABLET.ER PO SCH (13:30)
[2016-04-12] MEDS ORDERED: SODIUM POLYSTYRENE SULFONATE 15 GM/60 ML BOTTLE PO STA (14:25)
[2016-04-12 15:20] VITALS: BP 108/55; PULSE 65; TEMP 97
--- NOTE | 2016-04-12 16:21 | P.NPCON ---
History of Present Illness - Reason for Consult Consult date: 04/12/16 acute renal failure - Chief Complaint Acute kidney injury and chronic kidney disease - History of Present Illness An 80-year-old patient known with chronic kidney disease, was admitted from the office because of worsening creatinine from 2.3 baseline to 3.1. He was admitted for further workup and treatment of the same. Patient denied any fever chills cough shortness of breath nausea vomiting. He has a ostomy bag for urinary output from previous surgery. There has been no change in the number of times he empties his bags. Denies taking any over-the- counter medication nonsteroidals antibiotics in the last few days. He was here about a week ago for 5 days and was discharged about 4-5 days prior to this admission. That admission was because of bleeding. He had no colonoscopy. He is known with diverticulosis in the past and has had polypectomy in 2014. Discharged home on digoxin, enalapril 2.5 mg 2 tablets a day, Lasix 40 mg 2 tablets a day, metoprolol 25 mg and verapamil 360 mg. Hydralazine 50 mg 3 times a day Past Medical History Past Medical History: Atrial Fibrillation, Cancer, Diabetes Mellitus, GERD/ Reflux, GI Bleed, Hearing Disorder / Deafness, Hyperlipidemia, Hypertension, Osteoarthritis (OA), Pneumonia, Prostate Disorder, Renal Disease Additional Past Medical History / Comment(s): BLADDER/PROSTATE CANCER with surgeries, IDDM type II, rectal polyp, diverticular dx, [place] bilaterally, CKD stage IV, RLS, gout bilateral feet, neuropathy bilateral legs/feet and hands, R knee "gives out" at times. History of Any Multi-Drug Resistant Organisms: Other MDRO Past Surgical History: Bladder Surgery, Cholecystectomy, Heart Catheterization With Stent, Hernia Repair, Pacemaker, Prostate Surgery Additional Past Surgical History / Comment(s): UROSTOMY D/T BLADDER, prostatectomy due to prostate CA, BILAT CATARACT REMOVAL, X4 CARDIAC STENTS, colonoscopy with bx, bilateral inguinal hernia repairs with left side done twice then abdominal wound debridement and incisional hernia repair, Past Anesthesia/Blood Transfusion Reactions: No Reported Reaction Additional Past Anesthesia/Blood Transfusion Reaction / Comment(s): BLOOD TRANSFUSION 03-30-16 Date of Last Stent Placement:: 1996 Type of Cardiac Device: Permanent Pacemaker Device Placement Date:: 1996 Past Psychological History: No Psychological Hx Reported Additional Psychological History / Comment(s): Pt resides with his spouse. He uses a cane or a scooter to get around. He drives some. His spouse can drive as well. Smoking Status: Former smoker Past Alcohol Use History: None Reported Additional Past Alcohol Use History / Comment(s): Pt started smoking in 1951 and quit in 2006 Past Drug Use History: None Reported - Past Family History Father Family Medical History: Renal Disease Additional Family Medical History / Comment(s): AT 34 of "uremic poisoning ". Mother History Unknown: Yes Family Medical History: Myocardial Infarction ([place]) Additional Family Medical History / Comment(s): OF [place] AGE 64 Medications and Allergies Home Medications Medication Instructions Recorded Confirmed Type Aspirin 81 mg PO DAILY 08/26/13 04/11/16 History Atorvastatin [Lipitor] 80 mg PO HS 08/26/13 04/11/16 History Digoxin [Lanoxin] 125 mcg PO MOWEFR 08/26/13 04/11/16 History HYDROcodone/APAP 5-325MG [[place] 1 tab PO Q8HR PRN 08/26/13 04/11/16 History 5-325] Insulin Glargine [Lantus] 60 units SQ HS 08/26/13 04/11/16 History Verapamil HCl [Verapamil ER] 360 mg PO PC-LUNCH 08/26/13 04/11/16 History glipiZIDE [Glucotrol] 10 mg PO AC-BID 08/26/13 04/11/16 History Ergocalciferol [Vitamin D2 50,000 unit PO Q14D 03/10/14 04/11/16 History (DRISDOL)] Pramipexole [Mirapex] 0.125 mg PO HS 03/10/14 04/11/16 History Allopurinol 100 mg PO DAILY 11/10/14 04/11/16 History Enalapril Maleate 2.5 mg PO DAILY 11/10/14 04/11/16 History Omeprazole 40 mg PO DAILY 11/10/14 04/11/16 History rOPINIRole HCL [Requip] 3 mg PO HS 11/10/14 04/11/16 History Magnesium 400 mg PO DAILY 10/05/15 04/11/16 History Calcitriol [Rocaltrol] 0.25 mcg PO WEST 03/30/16 04/11/16 History Metoprolol Tartrate [Lopressor] 25 mg PO DAILY 03/30/16 04/11/16 History hydrALAZINE HCL [Apresoline] 50 mg PO TID 03/30/16 04/11/16 History Allergies Allergy/AdvReac Type Severity Reaction Status Date / Time No Known Allergies Allergy Verified 04/11/16 11:04 Physical Exam Vitals: Vital Signs Temp Pulse Pulse Resp BP Pulse Ox 04/12/16 15:00 97.0 F L 65 20 108/55 97 04/12/16 08:00 20 04/12/16 07:00 97.5 F L 60 20 169/73 97 04/11/16 23:00 97.9 F 61 20 162/78 97 04/11/16 16:46 96.4 F L 61 21 172/72 98 04/11/16 16:00 16 Intake and Output 04/12/16 04/12/16 04/12/16 06:59 14:59 22:59 Intake Total 860 Output Total 1000 Balance -140 Intake: Intake, IV Titration 500 Amount Sodium Chloride 0.9% 1, 500 000 ml @ 75 mls/hr IV . [id number] [facility] Rx#:[id number] Oral 360 Output: Urine 1000 Other: Voiding Method Ileal Conduit (Right) # Voids 6 On examination is awake alert oriented comfortable walking around wants to be discharged. HEENT exam no JVP lymphadenopathy thyromegaly no carotid bruit neck is supple no facial asymmetry Lungs are clear to auscultation percussion good air entry bilaterally Heart sounds are unremarkable for any murmur rub gallop. Abdomen soft nontender Bar bag on his abdomen Extremity exam showed mild edema with a DELBERT hose stocking on him. Neurologically awake alert oriented no focal motor deficit. Results - Lab Results Most recent lab results Calcium 9.3 mg/dL (8.4-10.2) 04/12/16 07:44 Phosphorus 4.1 mg/dL (2.5-4.5) 04/11/16 12:07 Magnesium 1.9 mg/dL (1.6-2.3) 04/11/16 12:07 04/12/16 07:44 04/12/16 07:44 Assessment and Plan Plan: Impression. 1. Acute kidney injury secondary to volume depletion, probably related to Lasix 80 mg a day does. Creatinine went up from 2.3-3.1 improved with IV hydration 2. Chronic kidney disease secondary to combination of chronic hydronephrosis of the left kidney with thinned cortex and bilateral nephrosclerosis. Baseline Is 2.3 but varies in the last few months. Urinalysis negative for proteinuria dated 04/11/2016 3. History of history of atrial fibrillation. 4. History of prostate cancer. 5. Anemia of chronic kidney disease and GI bleed hemoglobin is 8.7 as of 2016, down a bit from 9 on 110 and 9.1 on 04/07/2016. 6. Ultrasound shows unequal kidney size, 10.4 cm on left with thin coarse texture suggestive hydronephrosis and its effects with chronic kidney disease, right kidney is 14 cm. Recommendation. Patient can be discharged as creatinine is coming down to 2.3 Reduce the Lasix to 80 mg on 4 days a week and 40 mg on 3 days a week. Check labs previous from now prescription given. Follow-up with our office in the next 1 week. Written instruction given to check blood pressures and call us if his less than 110 or greater than 140. Creatinine instructions given to check feet and blood pressure everyday
--- NOTE | 2016-04-13 08:11 | DS ---
DATE OF ADMISSION: 04/11/2016 DATE OF DISCHARGE: 04/12/2016 An 80-year-old admitted with worsening creatinine from 2.5 to 3.01, probably due to intravascular volume depletion with contribution from NSAIDs and diuretics, both of which were discontinued and patient was given IV fluids. The patient has CKD stage IV secondary to diabetes mellitus and there was a concern about congestive heart failure. I obtained echocardiogram, this is not show any CHF. The patient was evaluated by Nephrology and after nephrology evaluation patient was discharged. Patient's BG inhibitor was discontinued. Lasix was reduced to 80 mg for 4 days followed by 40 mg 3 days in a week. Patient was seen and examined on the day of discharge. Vitals are stable. ( ) ( ) 1. History of atrial fibrillation, not on anticoagulation because of his recent bleed. 2. Anion gap metabolic acidosis secondary to uremia, which improved. 3. 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 4. Hypertension, enalapril will be held because of her potassium elevation. Keep the blood pressure above 120 systolic. 5. Prostate cancer in remission. 6. Restless leg syndrome. 7. Hyperlipidemia. 8. Patient's digoxin levels are essentially within normal limits. The patient takes alternate day of digoxin. Will let him continue that medication. Please refer to my depart summary for further details of discharge medications. [facility] will follow the patient. Patient will follow up with Dr. Lauri Gustafson on April 17 at 1 p.m. ( ) nephrology in about 3 to 4 days. Cardiac and diabetic 1800 calorie diet, renal diet. I spent greater than 35 minutes in total discharge process.
[2016-04-13] MEDS ORDERED: FAMOTIDINE 20 MG TAB PO SCH (09:00)
[2016-04-16] MEDS ORDERED: CALCITRIOL 0.25 MCG CAP PO SCH (12:00)
== END 2016-04-12 16:30 | disposition home health service (06) | DRG 683 ==
LOC: EC 10:43 → 4MS4W 13:41
PROVIDERS: ADMIT Internal Medicine; ATTEND Internal Medicine
DX: N17.9 Acute kidney failure, unspecified (principal); E87.2 Acidosis; J84.9 Interstitial pulmonary disease, unspecified; N18.4 Chronic kidney disease, stage 4 (severe); N13.30 Unspecified hydronephrosis; E11.21 Type 2 diabetes mellitus with diabetic nephropathy; I48.91 Unspecified atrial fibrillation; E11.40 Type 2 diabetes mellitus with diabetic neuropathy, unspecified; E11.649 Type 2 diabetes mellitus with hypoglycemia without coma; E86.9 Volume depletion, unspecified; J44.9 Chronic obstructive pulmonary disease, unspecified; E11.22 Type 2 diabetes mellitus with diabetic chronic kidney disease; E87.8 Other disorders of electrolyte and fluid balance, not elsewhere classified; D63.1 Anemia in chronic kidney disease; D50.0 Iron deficiency anemia secondary to blood loss (chronic); I45.81 Long QT syndrome; N42.9 Disorder of prostate, unspecified; E78.5 Hyperlipidemia, unspecified; I12.9 Hypertensive chronic kidney disease with stage 1 through stage 4 chronic kidney disease, or unspecified chronic kidney disease; M10.9 Gout, unspecified; G25.81 Restless legs syndrome; K21.9 Gastro-esophageal reflux disease without esophagitis; H91.90 Unspecified hearing loss, unspecified ear; M19.90 Unspecified osteoarthritis, unspecified site; Z85.46 Personal history of malignant neoplasm of prostate; Z95.0 Presence of cardiac pacemaker; Z93.2 Ileostomy status; Z87.891 Personal history of nicotine dependence; Z98.42 Cataract extraction status, left eye; Z98.41 Cataract extraction status, right eye; Z90.49 Acquired absence of other specified parts of digestive tract; Z95.5 Presence of coronary angioplasty implant and graft; Z16.24 Resistance to multiple antibiotics; Z79.82 Long term (current) use of aspirin; Z79.4 Long term (current) use of insulin; Z79.84 Long term (current) use of oral hypoglycemic drugs; Z79.899 Other long term (current) drug therapy
CPT/HCPCS: 36415; 71020; 76770; 80048; 80053; 80162; 81001; 82550; 82553; 83735; 83880; 84100; 84484; 85025; 85027; 85610; 85730; 93005; 93306; 96374; 99285

== ENCOUNTER 2016-04-18 12:06 | Inpatient (IN) | payer MEDICARE, BC ==
--- NOTE | 2016-04-18 13:23 | ED ---
Recheck HPI - General Chief Complaint: Recheck/Abnormal Lab/Rx Stated Complaint: Abnormal Labs Time Seen by Provider: 04/18/16 13:10 Source: patient, RN notes reviewed Mode of arrival: ambulatory Limitations: no limitations, physical limitation - History of Present Illness Initial Comments: This is a 80-year-old male with a history of stage IV renal failure who was sent in for evaluation of hyperkalemia blood draw that was done yesterday. He had a 5.8 potassium. He denies any headache dizziness blurry vision nausea vomiting or other symptoms. He has had high potassium before but never this high. He denies any palpitations he has a history of atrial fibrillation. MD Complaint: abnormal lab - Related Data Home Medications Medication Instructions Recorded Confirmed Aspirin 81 mg PO DAILY 08/26/13 04/18/16 Atorvastatin [Lipitor] 80 mg PO HS 08/26/13 04/18/16 Digoxin [Lanoxin] 125 mcg PO MOWEFR 08/26/13 04/18/16 HYDROcodone/APAP 5-325MG [[place] 1 tab PO Q8HR PRN 08/26/13 04/18/16 5-325] Insulin Glargine [Lantus] 60 units SQ HS 08/26/13 04/18/16 Verapamil HCl [Verapamil ER] 360 mg PO PC-LUNCH 08/26/13 04/18/16 glipiZIDE [Glucotrol] 10 mg PO AC-BID 08/26/13 04/18/16 Ergocalciferol [Vitamin D2 50,000 unit PO Q14D 03/10/14 04/18/16 (DRISDOL)] Pramipexole [Mirapex] 0.125 mg PO HS 03/10/14 04/18/16 Allopurinol 100 mg PO DAILY 11/10/14 04/18/16 Enalapril Maleate 2.5 mg PO DAILY 11/10/14 04/18/16 Omeprazole 40 mg PO DAILY 11/10/14 04/18/16 rOPINIRole HCL [Requip] 3 mg PO HS 11/10/14 04/18/16 Magnesium 400 mg PO DAILY 10/05/15 04/18/16 Calcitriol [Rocaltrol] 0.25 mcg PO WETS 03/30/16 04/18/16 Metoprolol Tartrate [Lopressor] 25 mg PO DAILY 03/30/16 04/18/16 hydrALAZINE HCL [Apresoline] 50 mg PO TID 03/30/16 04/18/16 Furosemide [Lasix] 40 mg PO [place] 04/12/16 04/18/16 Furosemide [Lasix] 80 mg PO MOWEFRSA 04/12/16 04/18/16 Allergies Allergy/AdvReac Type Severity Reaction Status Date / Time No Known Allergies Allergy Verified 04/18/16 12:41 Review of Systems ROS Statement: Those systems with pertinent positive or pertinent negative responses have been documented in the HPI. ROS Other: All systems not noted in ROS Statement are negative. Past Medical History Past Medical History: Atrial Fibrillation, Cancer, Diabetes Mellitus, GERD/ Reflux, GI Bleed, Hearing Disorder / Deafness, Hyperlipidemia, Hypertension, Osteoarthritis (OA), Pneumonia, Prostate Disorder, Renal Disease Additional Past Medical History / Comment(s): BLADDER/PROSTATE CANCER with surgeries, IDDM type II, rectal polyp, diverticular dx, [place] bilaterally, CKD stage IV, RLS, gout bilateral feet, neuropathy bilateral legs/feet and hands, R knee "gives out" at times. History of Any Multi-Drug Resistant Organisms: Other MDRO Past Surgical History: Bladder Surgery, Cholecystectomy, Heart Catheterization With Stent, Hernia Repair, Pacemaker, Prostate Surgery Additional Past Surgical History / Comment(s): UROSTOMY D/T BLADDER, prostatectomy due to prostate CA, BILAT CATARACT REMOVAL, X4 CARDIAC STENTS, colonoscopy with bx, bilateral inguinal hernia repairs with left side done twice then abdominal wound debridement and incisional hernia repair, Past Anesthesia/Blood Transfusion Reactions: No Reported Reaction Additional Past Anesthesia/Blood Transfusion Reaction / Comment(s): BLOOD TRANSFUSION 03-30-16 Date of Last Stent Placement:: 1996 Type of Cardiac Device: Permanent Pacemaker Device Placement Date:: 1996 Past Psychological History: No Psychological Hx Reported Additional Psychological History / Comment(s): Pt resides with his spouse. He uses a cane or a scooter to get around. He drives some. His spouse can drive as well. Smoking Status: Former smoker Past Alcohol Use History: None Reported Additional Past Alcohol Use History / Comment(s): Pt started smoking in 1951 and quit in 2006 Past Drug Use History: None Reported - Past Family History Father Family Medical History: Renal Disease Additional Family Medical History / Comment(s): AT 34 of "uremic poisoning ". Mother History Unknown: Yes Family Medical History: Myocardial Infarction ([place]) Additional Family Medical History / Comment(s): OF [place] AGE 64 General Exam - General Exam Comments Initial Comments: This is a well-developed well-nourished awake alert oriented history male Limitations: no limitations, physical limitation General appearance: alert, in no apparent distress Head exam: Present: atraumatic, normocephalic, normal inspection Eye exam: Present: normal appearance, PERRL, EOMI. Absent: scleral icterus, conjunctival injection, periorbital swelling ENT exam: Present: mucous membranes dry Neck exam: Present: normal inspection. Absent: tenderness, meningismus, lymphadenopathy Respiratory exam: Present: normal lung sounds bilaterally. Absent: respiratory distress, wheezes, rales, rhonchi, stridor Cardiovascular Exam: Present: regular rate, normal rhythm, normal heart sounds. Absent: systolic murmur, diastolic murmur, rubs, gallop, clicks GI/Abdominal exam: Present: soft, normal bowel sounds. Absent: distended, tenderness, guarding, rebound, rigid Extremities exam: Present: normal inspection, full ROM, normal capillary refill. Absent: tenderness, pedal edema, joint swelling, calf tenderness Back exam: Present: normal inspection Neurological exam: Present: alert, oriented X3, CN II-XII intact Psychiatric exam: Present: normal affect, normal mood Skin exam: Present: warm, dry, intact, normal color. Absent: rash Course Vital Signs 04/18/16 04/18/16 04/18/16 12:38 15:15 15:19 Temperature 97.9 F Pulse Rate 72 60 60 Respiratory 18 16 Rate Blood Pressure 135/63 159/70 O2 Sat by Pulse 97 96 Oximetry 04/18/16 15:24 Temperature Pulse Rate 62 Respiratory Rate Blood Pressure O2 Sat by Pulse Oximetry - Reevaluation(s) Reevaluation #1: 04/18/16 16:06 I did reevaluate the patient he has no change. Medical Decision Making - Medical Decision Making I did a long discussion with the patient has regarding the findings patient has hyperkalemia secondary to renal insufficiency. The patient be admitted I did discuss case with Dr. Chu - Lab Data Result diagrams: 04/18/16 13:17 04/18/16 13:17 Lab Results 04/18/16 04/18/16 04/18/16 Range/Units 13:17 13:17 13:17 WBC 7.0 (3.8-10.6) k/uL RBC 2.75 L (4.30-5.90) m/uL Hgb 8.4 L (13.0-17.5) gm/dL Hct 27.3 L (39.0-53.0) % MCV 99.5 (80.0-100.0) fL MCH 30.6 (25.0-35.0) pg MCHC 30.8 L (31.0-37.0) g/dL RDW 17.1 H (11.5-15.5) % Plt Count 201 (150-450) k/uL Neutrophils % 83 % Lymphocytes % 8 % Monocytes % 6 % Eosinophils % 2 % Basophils % 0 % Neutrophils # 5.8 (1.3-7.7) k/uL Lymphocytes # 0.6 L (1.0-4.8) k/uL Monocytes # 0.4 (0-1.0) k/uL Eosinophils # 0.2 (0-0.7) k/uL Basophils # 0.0 (0-0.2) k/uL Hypochromasia Slight Anisocytosis Slight Macrocytosis Slight Sodium 140 (137-145) mmol/L Potassium 6.9 H* (3.5-5.1) mmol/L Chloride 109 H (98-107) mmol/L Carbon Dioxide 19 L (22-30) mmol/L Anion Gap 12 mmol/L BUN 92 H* (9-20) mg/dL Creatinine 2.62 H (0.66-1.25) mg/dL Est GFR (MDRD) Af Amer 29 (>60 ml/min/1.73 sqM) Est GFR (MDRD) Non-Af 24 (>60 ml/min/1.73 sqM) Glucose 65 L (74-99) mg/dL Calcium 9.1 (8.4-10.2) mg/dL Magnesium 2.0 (1.6-2.3) mg/dL Total Bilirubin 0.4 (0.2-1.3) mg/dL AST 23 (17-59) U/L ALT 76 H (21-72) U/L Alkaline Phosphatase 133 H (38-126) U/L Total Creatine Kinase 87 (55-170) U/L CK-MB (CK-2) 2.4 (0.0-2.4) ng/mL CK-MB (CK-2) Rel Index 2.8 Total Protein 6.3 (6.3-8.2) g/dL Albumin 3.7 (3.5-5.0) g/dL Digoxin 1.0 ng/mL - EKG Data -: EKG Interpreted by Me (Ventricular paced rhythm of 60 QRS of 160 daily since QTC of 460/468 no acu) - Radiology Data Radiology results: report reviewed (Imaging was reviewed no acute findings), image reviewed Critical Care Time Critical Care Time: Yes Critical Care Time: 82 minutes of critical care time which includes initial history physical lab and x-ray evaluation reevaluation the patient. Discussed with patient and family regarding the findings. Discussion with the admitting physician. Admission orders and documentation of the above. Disposition Clinical Impression: Hyperkalemia Disposition: ADMITTED IP TO THIS [facility] Condition: Serious
[2016-04-18 13:44] LABS: Anisocytosis Slight; Basophils % (A) 0 %; CH 31.7; CHCM 32.1; Eosinophils # (A) 0.2 k/uL (0-0.7); Eosinophils % (A) 2 %; HCT 27.3 % (39.0-53.0); HDW 3.25; HGB 8.4 gm/dL (13.0-17.5); Hypochromasia Slight; Luc # (Auto) 0.08; Luc % (Auto) 1; Lymphocytes # (A) 0.6 k/uL (1.0-4.8); Lymphocytes % (A) 8 %; MCH 30.6 pg (25.0-35.0); MCHC 30.8 g/dL (31.0-37.0); MCV 99.5 fL (80.0-100.0); Macrocytosis Slight; Mean Platelet Volume 8.4; Monocytes # (A) 0.4 k/uL (0-1.0); Monocytes % (A) 6 %; Neutrophils # (A) 5.8 k/uL (1.3-7.7); Neutrophils % (A) 83 %; RBC 2.75 m/uL (4.30-5.90); RDW 17.1 % (11.5-15.5); WBC (Perox) 7.24
[2016-04-18 13:57] LABS: Calcium 9.1 mg/dL (8.4-10.2); Total Bilirubin 0.4 mg/dL (0.2-1.3); Total Protein 6.3 g/dL (6.3-8.2)
--- NOTE | 2016-04-18 14:06 | XR ---
EXAMINATION TYPE: XR chest 2V DATE OF EXAM: 04/18/2016 2:00 PM COMPARISON: Prior chest x-ray 11 April 2016 HISTORY: Trauma, abnormal chest x-ray TECHNIQUE: Frontal and lateral views of the chest are obtained. FINDINGS: The heart remains enlarged. Pacemaker shows a stable appearance, leads in the right atrium and ventricle. Biapical pleural thickening again noted, there is no pneumothorax or pleural effusion evident. Prominent lung volumes suggest underlying COPD. Interstitial changes are again noted within the lungs. IMPRESSION: Similar findings to prior exam. Correlate to exclude pulmonary venous hypertension and i nterstitial edema.
[2016-04-18 14:23] LABS: Creatine Kinase MB 2.4 ng/mL (0.0-2.4); Potassium 6.9 mmol/L (3.5-5.1)
[2016-04-18] MEDS ORDERED: DEXTROSE 50%-WATER 50 ML SYRINGE IVP STA (14:27)
[2016-04-18] MEDS ORDERED: INSULIN REGULAR 100 UNIT/ML VIAL IV ONE ×2 (14:27→21:36)
[2016-04-18] MEDS ORDERED: ALBUTEROL NEBULIZED 2.5 MG/3 ML INHALATION STA (14:27)
[2016-04-18] MEDS ORDERED: SODIUM BICARB 8.4% 50 ML SYR (1 MEQ/ML) IV STA (14:28)
[2016-04-18] MEDS ORDERED: NALOXONE 0.4 MG/ML 1 ML VIAL IV PRN (16:08)
[2016-04-18] MEDS ORDERED: FUROSEMIDE 10 MG/ML 4 ML VIAL IV STA (16:10)
[2016-04-18] MEDS ORDERED: HYDROcodone/APAP 5-325MG 1 EACH TAB PO PRN (16:10)
[2016-04-18] MEDS ORDERED: SODIUM POLYSTYRENE SULFONATE 15 GM/60 ML BOTTLE PO ONE (16:10)
[2016-04-18 16:54] LABS: Glucose,Whole Blood 125 mg/dL (75-99)
[2016-04-18] MEDS: SODIUM CHLORIDE 0.9% 1,000 ML IV SCH (16:54)
[2016-04-18] MEDS: ALBUTEROL NEBULIZED 2.5 MG/3 ML INHALATION SCH (20:34)
[2016-04-18] MEDS: glipiZIDE 10 MG TAB PO SCH (20:34)
[2016-04-18] MEDS: hydrALAZINE HCL 50 MG TAB PO SCH (20:34)
--- NOTE | 2016-04-18 20:41 | HP ---
DATE OF ADMISSION: Patient is an 80-year-old gentleman who was recently discharged from my service. I gave him a script for basic metabolic profile in 3 days. That was done and the results were faxed to the primary care physician and apparently the patient was found to have calcium of 5.8. Patient was subsequently asked to go to the ER. Patient came to ER today and found to have potassium of 6.5. During his discharge time I did discontinue his enalapril, but patient appears to have been taking that medication. Patient denies any headache, nausea bloody vision, vomiting, and patient denied any chest pain. Patient does have CKD stage IV and baseline creatinine is around 2. He came in with creatinine of 2.9. Patient does have peripheral edema due to his CKD and urination issues, because of which I discharged him on recommended dose of Lasix that is recommended by Nephrology, to follow closely with Nephrology. Apparently patient did not end up following with Nephrology. Patient does have a history of atrial fibrillation. Patient was given Kayexalate, calcium gluconate and insulin and repeat potassium will be done about 6:00 p.m. Will also give him a dose of Kayexalate. Enalapril, BG inhibitor will be held. Patient is receiving IV fluids at this point of time. Patient has similar pain as documented in his previous hospitalization and improved with IV fluids. I will continue the IV fluid at this point of time. Lasix is being held temporarily. The chest x-ray was read as interstitial infiltrate. I did review the chest x-ray. My suspicion is low for any pulmonary edema at this point of time and patient had an echocardiogram that showed normal ejection fraction during his previous hospitalization. Patient does not have any symptoms of orthopnea, PND. ROS: All other systems were reviewed and were negative. Home medications include: Aspirin, atorvastatin, ( ), hydrocodone, acetaminophen, insulin glargine, verapamil, glipizide, ergocalciferol, pramipexole, allopurinol, Enalapril. This was discontinued actually during this last hospitalization. Omeprazole, Ropinirole, magnesium calcitriol, metoprolol, hydralazine, Lasix 40 Sunday, Sunday, , and 80 mg Sunday, Sunday, Sunday, Sunday. ALLERGIES: No known drug allergies. PAST MEDICAL HISTORY: Significant for atrial fibrillation, type 2 diabetes mellitus, gastroesophageal reflux disease, hyperlipidemia, hypertension, osteoarthritis, pneumonia, benign prostatic hypertrophy, CKD stage IV, restless leg syndrome, gout, bladder surgery, cholecystectomy, cardiac catheterization and stent placement, hernia repair, pacemaker placement and prostatic surgery. Patient has a urostomy in place secondary to bladder cancer and prostate cancer. Patient has a permanent pacemaker. SOCIAL HISTORY: Former smoker. Quit smoking in 2006. Denied any alcohol abuse or any drug abuse. FAMILY HISTORY: Father had a kidney disease and mother had myocardial infarction. PHYSICAL EXAMINATION: VITAL SIGNS: Temperature 97.9, pulse 72, respiratory rate of 18, blood pressure is 135/63, saturating at 96% on room air. GENERAL: The patient is alert and oriented x3, not in any acute distress. Well developed, well nourished. HEENT: Pupils are round and equally reacting to light. EOMI. No scleral icterus. No conjunctival pallor. Normocephalic, atraumatic. No pharyngeal erythema. No thyromegaly. CARDIOVASCULAR: S1 and S2 present. No murmurs, rubs, or gallops. PULMONARY: Chest is clear to auscultation, no wheezing or crackles. ABDOMEN: Soft, nontender, nondistended, normoactive bowel sounds. No palpable organomegaly. MUSCULOSKELETAL: No joint swelling or deformity. EXTREMITIES: No cyanosis, clubbing, or pedal edema. NEUROLOGICAL: Gross neurological examination did not reveal any focal deficits. SKIN: No rashes. LABORATORY DATA: CBC, CMP are significantly abnormal for elevated BUN and creatinine. BUN of 90, creatinine of 2.62. Patient does not have any uremic symptoms. Potassium is 6.9. Dig. level is 1.0. Patient will be on alternate day of digoxin. Will hold off tomorrow's dose. Patient will have verapamil toxicity because highly elevated potassium as well. ASSESSMENT AND PLAN: 1. Hyperkalemia secondary to acute renal failure on Enalapril. Patient will be started on IV fluids. Will continue with IV fluids. Repeat electrolytes tomorrow. The patient was treated with above mentioned medications including calcium gluconate, insulin, Kayexalate for his elevated potassium. 2. Acute renal failure on CKD stage IV secondary to excessive diuretic therapy, I believe, and patient will be given IV fluids. Hold off diuretic and Nephrology was consulted. 3. Atrial fibrillation and sick sinus syndrome. Patient has a pacemaker. Patient is on verapamil and digoxin, which will be continued; digoxin will be held because of his elevated dig level. 4. Diabetes mellitus type 2. We will monitor the blood sugars. Continue his home regimen. Hold off on glipizide. Will probably switch glipizide to Januvia considering his renal dysfunction. 5. Gastroesophageal reflux disease. 6. Hypertension. 7. Hyperlipidemia. 8. Osteoarthritis. 9. Benign prostatic hypertrophy. 10. History of prostate cancer with bladder reconstruction surgery and ileostomy. 11. Osteoarthritis. For the above-mentioned chronic medical problems I will go ahead and continue his home medications except for those mentioned above. Patient has multiple chronic medical problems. Nephrology will be consulted. [facility]
[2016-04-18] MEDS ORDERED: SODIUM POLYSTYRENE SULFONATE 15 GM/60 ML BOTTLE PO STA (20:58)
[2016-04-18] MEDS ORDERED: INSULIN GLARGINE 100 UNIT/ML 10 ML VIAL SQ SCH (21:00)
[2016-04-18] MEDS ORDERED: PRAMIPEXOLE 0.125 MG TAB PO SCH (21:00)
[2016-04-18] MEDS ORDERED: ATORVASTATIN 80 MG TAB PO SCH (21:00)
[2016-04-18 21:14] LABS: Glucose,Whole Blood 98 mg/dL (75-99)
[2016-04-18] MEDS ORDERED: DEXTROSE 50%-WATER 50 ML SYRINGE IVP ONE (21:36)
[2016-04-18] MEDS ORDERED: SODIUM BICARB 8.4% 50 ML SYR (1 MEQ/ML) IV ONE (21:36)
[2016-04-18 22:32] LABS: Glucose,Whole Blood 202 mg/dL (75-99)
[2016-04-19] MEDS ORDERED: ALBUTEROL NEBULIZED 2.5 MG/3 ML INHALATION PRN (00:43)
[2016-04-19] MEDS: ALBUTEROL NEBULIZED 2.5 MG/3 ML INHALATION SCH (00:44)
[2016-04-19 02:29] LABS: Glucose,Whole Blood 43 mg/dL (75-99)
[2016-04-19 03:07] LABS: Glucose,Whole Blood 89 mg/dL (75-99)
[2016-04-19 03:23] VITALS: RESP 17
[2016-04-19] MEDS: SODIUM CHLORIDE 0.9% 1,000 ML IV SCH ×2 (05:38→11:49)
[2016-04-19 05:51] LABS: Glucose,Whole Blood 75 mg/dL (75-99)
[2016-04-19] MEDS: glipiZIDE 10 MG TAB PO SCH (06:42)
[2016-04-19 06:54] LABS: Anisocytosis Slight; CH 31.6; CHCM 31.9; HCT 25.4 % (39.0-53.0); HDW 3.21; HGB 7.8 gm/dL (13.0-17.5); Hypochromasia Slight; MCH 30.9 pg (25.0-35.0); MCHC 30.9 g/dL (31.0-37.0); Macrocytosis Slight; Mean Platelet Volume 8.3; RBC 2.54 m/uL (4.30-5.90); RDW 16.9 % (11.5-15.5)
[2016-04-19 07:13] LABS: Calcium 8.2 mg/dL (8.4-10.2); Phosphorous 4.8 mg/dL (2.5-4.5); Potassium 4.1 mmol/L (3.5-5.1)
[2016-04-19] MEDS ORDERED: PANTOPRAZOLE 40 MG TABLET PO SCH (07:30)
[2016-04-19] MEDS: hydrALAZINE HCL 50 MG TAB PO SCH (07:59)
[2016-04-19] MEDS ORDERED: DIGOXIN 125 MCG TAB PO SCH (09:00)
[2016-04-19] MEDS ORDERED: METOPROLOL TARTRATE 25 MG TAB PO SCH (09:00)
[2016-04-19] MEDS ORDERED: ASPIRIN 81 MG CHEW PO SCH (09:00)
[2016-04-19] MEDS ORDERED: FUROSEMIDE 80 MG TAB PO SCH (09:00)
[2016-04-19] MEDS ORDERED: ALLOPURINOL 100 MG TAB PO SCH (09:00)
--- NOTE | 2016-04-19 11:01 | CDI ---
In responding to this query, please exercise your independent professional judgment. The [facility] Coding Staff and Clinical Documentation Specialists appreciate your assistance in clarifying documentation, maintaining compliance with coding guidelines, accurately documenting patients condition and capturing severity of illness. The fact that a question is asked does not imply that any particular answer is desired or expected. Communication forms are a method of clarifying documentation and are not made part of the Legal Health Record. Thank you in advance for your clarification. Last Revision, January 2015 Aureliano Gentile [address] [facility] [place] [address] Documentation Clarification Form Date: 04/19/2016 10:52:00 AM From: Yenni Agarwal CCS, CCDS Admit Date: 04/18/2016 4:08:00 PM Patient Name: Chava Hidalgo Visit Number: [id number] Discharge Date: Dr. Erick Chu: Atrial fibrillation is documented in the EC note as a history, documented in the H&P as Atrial Fibrillation and sick sinus syndrome. History/Risk Factors: Has pacemaker, CKD stage IV, Hypertension, IDDM II. Past history of prostate & bladder CA status post surgeries. Clinical Indicators: HR 60 - 61 - 62 Elevated Digoxin level: 1.0 EKG/telemetry: Rate 60, Ventricular-paced rhythm. Treatment: Nephrology consult. IV fluids, IV Dextrose, IV Insulin, IV Na Bicarb , IV Narcan, IV Lasix, repeat labs. In your professional opinion, can you please clarify the type of atrial fibrillation, if known? Chronic/Permanent Paroxysmal Persistent Other, please specify Unable to determine Please document in your progress notes and discharge summary in order to capture severity of illness and risk of mortality. Include clinical findings that support your diagnosis. FYI: Press F11 to launch patient chart ____x_ Place X here if this finding has no clinical significance, is not applicable or if you are not able to provide any additional documentation. Thank You. SUKHI
[2016-04-19 11:36] VITALS: BP 146/66; PULSE 62; TEMP 97.5
[2016-04-19 12:03] LABS: Glucose,Whole Blood 130 mg/dL (75-99)
[2016-04-19 12:40] LABS: % Iron Saturation 19.9 % (20-50)
--- NOTE | 2016-04-19 12:45 | P.NPCON ---
History of Present Illness - Reason for Consult chronic renal failure - History of Present Illness Reason for consultation: Chronic kidney disease and hyperkalemia. History of present illness: Patient is a 80-year-old male seen in renal consultation for acute kidney injury on chronic kidney disease and hyperkalemia. Patient has chronic kidney disease stage IV with baseline creatinine in the range of 2.1-2.4 secondary to nephrosclerosis. His creatinine was 2.6 on admission and is 2.16 today. His potassium was elevated at 6.9 which was medically treated with IV insulin, sodium bicarbonate, as well as Kayexalate. His potassium this morning is 4.1. He admits to good urine output. Denies any hematuria or dysuria. Denies vomiting or diarrhea. Denies regular use of NSAIDs. Appetite is good. He is currently maintained on normal saline running at 100 mL an hour. Denies any active complaints at this time. He was maintained on an BG inhibitor at home which is currently held. Vital signs are stable. General: The patient appeared well nourished and normally developed. HEENT: Head exam is unremarkable. Neck is without jugular venous distension. LUNGS: Lungs are clear to auscultation and percussion. Breath sounds decreased. HEART: Rate and Rhythm are regular. First and second heart sounds normal. No murmurs, rubs or gallops. ABDOMEN: Abdominal exam reveals normal bowel sounds. Non-tender and non- distended. No evidence of peritonitis. EXTREMITITES: No clubbing, cyanosis, or edema. Past Medical History Past Medical History: Atrial Fibrillation, Cancer, Diabetes Mellitus, GERD/ Reflux, GI Bleed, Hearing Disorder / Deafness, Hyperlipidemia, Hypertension, Osteoarthritis (OA), Pneumonia, Prostate Disorder, Renal Disease Additional Past Medical History / Comment(s): BLADDER/PROSTATE CANCER with surgeries, IDDM type II, rectal polyp, diverticular dx, [place] bilaterally, CKD stage IV, RLS, gout bilateral feet, neuropathy bilateral legs/feet and hands, R knee "gives out" at times. History of Any Multi-Drug Resistant Organisms: Other MDRO Past Surgical History: Bladder Surgery, Cholecystectomy, Heart Catheterization With Stent, Hernia Repair, Pacemaker, Prostate Surgery Additional Past Surgical History / Comment(s): UROSTOMY D/T BLADDER, prostatectomy due to prostate CA, BILAT CATARACT REMOVAL, X4 CARDIAC STENTS, colonoscopy with bx, bilateral inguinal hernia repairs with left side done twice then abdominal wound debridement and incisional hernia repair, Past Anesthesia/Blood Transfusion Reactions: No Reported Reaction Additional Past Anesthesia/Blood Transfusion Reaction / Comment(s): BLOOD TRANSFUSION 03-30-16 Date of Last Stent Placement:: 1996 Type of Cardiac Device: Permanent Pacemaker Device Placement Date:: 1996 Past Psychological History: No Psychological Hx Reported Additional Psychological History / Comment(s): Pt resides with his spouse. He uses a cane or a scooter to get around. He drives some. His spouse can drive as well. Smoking Status: Former smoker Past Alcohol Use History: None Reported Additional Past Alcohol Use History / Comment(s): Pt started smoking in 1951 and quit in 2006 Past Drug Use History: None Reported - Past Family History Father Family Medical History: Renal Disease Additional Family Medical History / Comment(s): AT 34 of "uremic poisoning ". Mother History Unknown: Yes Family Medical History: Myocardial Infarction (CA) Additional Family Medical History / Comment(s): OF CA AGE 64 Medications and Allergies Home Medications Medication Instructions Recorded Confirmed Type Aspirin 81 mg PO DAILY 08/26/13 04/18/16 History Atorvastatin [Lipitor] 80 mg PO HS 08/26/13 04/18/16 History HYDROcodone/APAP 5-325MG [[place] 1 tab PO Q8HR PRN 08/26/13 04/18/16 History 5-325] Insulin Glargine [Lantus] 60 units SQ HS 08/26/13 04/18/16 History Verapamil HCl [Verapamil ER] 360 mg PO PC-LUNCH 08/26/13 04/18/16 History Ergocalciferol [Vitamin D2 50,000 unit PO Q14D 03/10/14 04/18/16 History (DRISDOL)] Pramipexole [Mirapex] 0.125 mg PO HS 03/10/14 04/18/16 History Allopurinol 100 mg PO DAILY 11/10/14 04/18/16 History rOPINIRole HCL [Requip] 3 mg PO HS 11/10/14 04/18/16 History Magnesium 400 mg PO DAILY 10/05/15 04/18/16 History Calcitriol [Rocaltrol] 0.25 mcg PO WEST 03/30/16 04/18/16 History Metoprolol Tartrate [Lopressor] 25 mg PO DAILY 03/30/16 04/18/16 History hydrALAZINE HCL [Apresoline] 50 mg PO TID 03/30/16 04/18/16 History Allergies Allergy/AdvReac Type Severity Reaction Status Date / Time No Known Allergies Allergy Verified 04/18/16 12:41 Physical Exam Vitals: Vital Signs Temp Pulse Pulse Resp BP BP Pulse Ox 04/19/16 11:34 97.5 F L 60 16 146/66 95 04/19/16 08:21 74 04/19/16 08:08 68 04/19/16 08:00 97.6 F 61 16 142/62 97 04/19/16 03:19 97.9 F 62 17 132/62 97 04/19/16 00:00 97.7 F 60 17 137/59 98 04/18/16 20:47 86 04/18/16 20:39 86 04/18/16 20:00 98.0 F 60 18 148/69 96 04/18/16 17:43 97.5 F L 60 16 145/60 97 04/18/16 17:06 98.3 F 04/18/16 16:58 60 18 152/64 97 Intake and Output 04/18/16 04/19/16 04/19/16 22:59 06:59 14:59 Intake Total 200 240 240 Output Total 700 650 Balance -500 -410 240 Intake: IV 200 Sodium Chloride 0.9% 1, 200 000 ml @ 100 mls/hr IV . Q10H MARLY Rx#:[id number] Oral 240 240 Output: Urine 700 650 Other: Voiding Method Urinal Urinal Urinal # Voids 0 # Bowel Movements 0 Weight 74.3 kg Results - Lab Results Most recent lab results Calcium 8.2 mg/dL (8.4-10.2) L 04/19/16 06:31 Phosphorus 4.8 mg/dL (2.5-4.5) H 04/19/16 06:31 Magnesium 2.0 mg/dL (1.6-2.3) 04/18/16 13:17 04/19/16 06:33 04/19/16 06:31 Assessment and Plan Plan: Assessment: #1. Nonoliguric acute kidney injury mostly prerenal in nature. Resolved. Creatinine 2.16 today. #2. Chronic kidney disease stage IV secondary to nephrosclerosis. Baseline creatinine in the range of 2.1-2.4. GFR is now at baseline. #3. Hyperkalemia secondary to high potassium intake along with metabolic acidosis as well as use of BG inhibitor. Patient does admit to eating quite a bit of tomato sauce as well as pasta sauce which is high in potassium. Resolved. #4. Anemia. Rule out iron deficiency. #5. Metabolic acidosis secondary to acute kidney injury. Resolved. Plan: I will decrease IV fluids to 50 mL an hour. Check iron studies. Avoid nephrotoxic agents and hypotensive episodes. BG inhibitor held at this time. Check stool for occult blood. Doubt GI bleed. Stable to be discharged home from nephrology standpoint and to follow-up as an outpatient in the next 1-2 weeks. He will need to get a repeat basic metabolic panel checked within 3 days of discharge. Thank you for the consultation. I will continue to follow the patient with you during his hospital stay.
--- NOTE | 2016-04-19 13:08 | XR ---
EXAMINATION TYPE: XR chest 1V DATE OF EXAM: 04/19/2016 12:52 PM COMPARISON: Prior chest x-ray 18 April 2016 HISTORY: Congestive heart failure, hyperkalemia and renal insufficiency TECHNIQUE: Single frontal view of the chest is obtained. FINDINGS: The heart remains enlarged. Pacemaker is stable. No pneumothorax or evident effusion. Inte rstitium is increased. Pulmonary vascularity and vitaly not significantly changed. IMPRESSION: Correlate for possible pulmonary venous hypertension and interstitial edema. There may be some improvement in aeration, airspace disease.
[2016-04-19 13:11] VITALS: BMI 27.2
[2016-04-19] MEDS ORDERED: VERAPAMIL SR 180 MG TABLET.ER PO SCH (13:30)
--- NOTE | 2016-04-20 08:37 | DS ---
DATE OF ADMISSION: 04/18/2016 DATE OF DISCHARGE: 04/19/2016 The patient is an 80-year-old gentleman who was discharged recently from the hospital, comes in with hyperkalemia secondary to BG inhibitor and noncompliance with dietary recommendations and patient has mild acute renal failure from CKD stage IV. Patient's CKD improved. Creatinine is at his baseline. Potassium came down. Patient will be discharged today with the following changes in the medications. Discontinue BG inhibitor. Instructions will be provided regarding his low potassium diet. Patient's PPI inhibitor will be switched to ranitidine and glipizide will be switched to Januvia. Patient will have a repeat basic metabolic profile tested in about a couple days and results will be faxed to Dr. Simeon's clinic. Patient dig level is at 1 and for men the appropriate dig level is at 0.8. Because of that reason, I am going to ask him to hold off on next dose of digoxin. Repeat dig level in a couple of days. Results will be faxed to Dr. Gustafson's clinic. Patient is otherwise clinically doing well. Patient was seen and examined on the day of discharge. Vitals are stable. PHYSICAL EXAMINATION: GENERAL: The patient is alert and oriented x3, not in any acute distress. Well developed, well nourished. HEENT: Pupils are round and equally reacting to light. EOMI. No scleral icterus. No conjunctival pallor. Normocephalic, atraumatic. No pharyngeal erythema. No thyromegaly. CARDIOVASCULAR: S1 and S2 present. No murmurs, rubs, or gallops. PULMONARY: Chest is clear to auscultation, no wheezing or crackles. ABDOMEN: Soft, nontender, nondistended, normoactive bowel sounds. No palpable organomegaly. MUSCULOSKELETAL: No joint swelling or deformity. EXTREMITIES: No cyanosis, clubbing, or pedal edema. NEUROLOGICAL: Gross neurological examination did not reveal any focal deficits. SKIN: No rashes. The patient will be discharged today in stable medical condition to home. FINAL DIAGNOSES: 1. Hyperkalemia secondary to acute renal failure, enalapril and noncompliance with low potassium diet. 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 2. Atrial fibrillation. I am not sure what kind of atrial fibrillation patient has. Patient is presently rate controlled in sinus rhythm. I cannot say if patient has chronic atrial fibrillation or paroxysmal atrial fibrillation. 3. Type 2 diabetes mellitus. 4. Gastroesophageal reflux disease. 5. Hypertension. 6. Hyperlipidemia. 7. Osteoarthritis. 8. Benign prostatic hypertrophy. 9. History of prostate cancer in remission. Please refer to my depart summary for further details of discharge medications and medication changes as mentioned above. I spent greater than 35 minutes in total discharge process. DISCHARGE DIET: Cardiac, diabetic 2000 calorie diet, renal diet. Patient will follow with Nephrology in about 2 to 3 days and follow up with Dr. Gustafson in about 3 to 7 days. Spent greater than 35 minutes in total discharge process.
[2016-04-20] MEDS ORDERED: FUROSEMIDE 40 MG TAB PO SCH (09:00)
[2016-04-23] MEDS ORDERED: CALCITRIOL 0.25 MCG CAP PO SCH (09:00)
== END 2016-04-19 14:38 | disposition home health service (06) | DRG 641 ==
LOC: EC 12:06 → 6SEL 16:08
PROVIDERS: ADMIT Internal Medicine; ATTEND Internal Medicine
DX: E87.5 Hyperkalemia (principal); N18.4 Chronic kidney disease, stage 4 (severe); E87.2 Acidosis; E11.21 Type 2 diabetes mellitus with diabetic nephropathy; N17.9 Acute kidney failure, unspecified; I49.5 Sick sinus syndrome; I48.91 Unspecified atrial fibrillation; E11.40 Type 2 diabetes mellitus with diabetic neuropathy, unspecified; I12.9 Hypertensive chronic kidney disease with stage 1 through stage 4 chronic kidney disease, or unspecified chronic kidney disease; G25.81 Restless legs syndrome; E11.22 Type 2 diabetes mellitus with diabetic chronic kidney disease; D64.9 Anemia, unspecified; T46.4X5A Adverse effect of angiotensin-converting-enzyme inhibitors, initial encounter; T46.0X5A Adverse effect of cardiac-stimulant glycosides and drugs of similar action, initial encounter; T50.1X5A Adverse effect of loop [high-ceiling] diuretics, initial encounter; R60.0 Localized edema; N40.0 Benign prostatic hyperplasia without lower urinary tract symptoms; K21.9 Gastro-esophageal reflux disease without esophagitis; E78.5 Hyperlipidemia, unspecified; M10.9 Gout, unspecified; M19.90 Unspecified osteoarthritis, unspecified site; H91.93 Unspecified hearing loss, bilateral; Z87.891 Personal history of nicotine dependence; Z95.0 Presence of cardiac pacemaker; Z95.5 Presence of coronary angioplasty implant and graft; Z82.49 Family history of ischemic heart disease and other diseases of the circulatory system; Z85.51 Personal history of malignant neoplasm of bladder; Z79.82 Long term (current) use of aspirin; Z79.4 Long term (current) use of insulin; Z98.42 Cataract extraction status, left eye; Z98.41 Cataract extraction status, right eye; Z85.46 Personal history of malignant neoplasm of prostate; Z79.84 Long term (current) use of oral hypoglycemic drugs; Z79.891 Long term (current) use of opiate analgesic; Z79.899 Other long term (current) drug therapy; Z16.24 Resistance to multiple antibiotics; Z91.11 Patient's noncompliance with dietary regimen; Z91.14 Patient's other noncompliance with medication regimen; Z90.49 Acquired absence of other specified parts of digestive tract; Z90.79 Acquired absence of other genital organ(s); Z87.19 Personal history of other diseases of the digestive system; Z87.01 Personal history of pneumonia (recurrent); Z86.010 Personal history of colon polyps; Z93.6 Other artificial openings of urinary tract status; Z84.1 Family history of disorders of kidney and ureter
CPT/HCPCS: 36415; 71010; 71020; 80048; 80053; 80162; 82272; 82550; 82553; 82728; 83540; 83550; 83735; 84100; 84132; 85025; 85027; 93005; 94640; 96374; 96375; 99291; 99292